=== PATIENT | female | born 1975 | race Caucasian/White ===

== ENCOUNTER 2023-01-23 09:00 | Outpatient (OUT) | payer BC, SELFPAY ==
[2023-01-23 09:47] LABS: Basophils Absolute Auto 0.1 10^3/uL (0.0-0.1); Basophils Percent Auto 0.6 % (0.2-2.0); Eosinophils Absolute Auto 0.1 10^3/uL (0.0-0.7); Eosinophils Percent Auto 1.2 % (0.9-7.0); Hematocrit 42.3 % (36.0-48.0); Hemoglobin 14.3 g/dL (12.0-16.0); Immature Granulocytes Abs Auto 0.05 10^3/uL (0.00-0.03); Immature Granulocytes Pct Auto 0.5 % (0.0-0.5); Lymphocytes Absolute Auto 2.3 10^3/uL (1.2-3.8); Lymphocytes Percent Auto 24.2 % (20.5-60.0); Mean Corpuscular HGB Conc 33.8 g/dL (29.9-35.2); Mean Corpuscular Hemoglobin 32.3 pg (26.7-34.0); Mean Corpuscular Volume 95.5 fL (81.0-99.0); Mean Platelet Volume 10.1 fL (9.5-13.5); Monocytes Absolute Auto 0.7 10^3/uL (0.3-0.8); Monocytes Percent Auto 6.9 % (1.7-12.0); Neutrophils Absolute Auto 6.4 10^3/uL (1.4-6.5); Neutrophils Percent Auto 66.6 % (43.0-75.0); Platelet Count 261 10^3/uL (150-450); Red Blood Count 4.43 10^6/uL (4.20-5.40); Red Cell Distribution Width 11.3 % (11.0-15.0); White Blood Count 9.7 10^3/uL (4.0-11.0)
[2023-01-23 12:05] LABS: Estimated Average Glucose 100 mg/dL; Glycohemoglobin A1C 5.1 % (4.5-6.2)
[2023-01-23 13:49] LABS: Alanine Aminotransferase 30 U/L (14-59); Albumin Globulin Ratio 1.2; Alkaline Phosphatase 46 U/L (46-116); Anion Gap 10.2; Aspartate Amino Transferase 15 U/L (15-37); BUN Creatinine Ratio 20.6; Bilirubin Total 0.4 mg/dL (0.2-1.0); Calcium 8.9 mg/dL (8.5-10.1); Chloride 104 mmol/L (98-107); Chol HDL Ratio 3.7; Cholesterol 231 mg/dL (<=200); Estimated GFR (African America >60 (>=60); Estimated GFR (Non-African Ame >60 (>=60); Free T3 2.86 pg/mL (2.18-3.98); Globulin 3.4 g/dL; Glucose 97 mg/dL (74-106); HDL Cholesterol 63 mg/dL (40-60); Potassium 4.2 mmol/L (3.5-5.1); Sodium 139 mmol/L (136-145); Thyroid Stimulating Hormone 2.563 uIU/mL (0.358-3.740); Total Protein 7.4 g/dL (6.4-8.2); Triglycerides 71 mg/dL (<=150); VLDL CHOLESTEROL 14.2 mg/dL
[2023-01-24 12:09] LABS: Insulin 5.4 uIU/mL (2.6-24.9)
[2023-01-24 17:11] LABS: Sex Horm Binding Glob, Serum 28.7 nmol/L (24.6-122.0)
[2023-01-25 04:07] LABS: Progesterone 0.1 ng/mL (.)
[2023-01-25 09:10] LABS: Estradiol 18.8 pg/mL (.)
[2023-01-25 18:11] LABS: Estrone, Serum 53 pg/mL (.)
[2023-01-27 00:07] LABS: DHEA, Serum 256 ng/dL (31-701)
[2023-02-02 09:11] LABS: Free Testosterone(Direct) 2.2 pg/mL (0.0-4.2); Testosterone 169 ng/dL (4-50)
[2023-02-02 10:12] LABS: Cortisol - AM 8.8 ug/dL (6.2-19.4)
== END 2023-01-23 09:01 | disposition home or self-care (01) ==
PROVIDERS: PCP Family Medicine; Visit Provider Family Medicine
DX: M72.2 Plantar fascial fibromatosis (principal); J01.90 Acute sinusitis, unspecified; E78.5 Hyperlipidemia, unspecified; R73.09 Other abnormal glucose; D64.9 Anemia, unspecified; E55.9 Vitamin D deficiency, unspecified
CPT/HCPCS: 36415; 80053; 80061; 82306; 82533; 82626; 82670; 82679; 83036; 83525; 83540; 84144; 84270; 84402; 84403; 84436; 84443; 84481; 85025

== ENCOUNTER 2023-01-30 11:11 | Outpatient (OUT) | payer BC, SELFPAY ==
--- NOTE | 2023-01-30 | XR_ITS ---
The [address] [address] Patient Name: ACOSTA RAMIREZ MRN: [id number] date: 1975 Sex: F Assigned Patient Location: [facility] Current Patient Location: [facility] Accession/Order Number: [id number] Exam Date: 01/30/2023 11:30 Report Date: 01/30/2023 22:54 At the request of: JOHNATHAN CHU Procedure: XR foot NIRANJAN min 3V EXAMINATION: XR foot NIRANJAN min 3V HISTORY: RIGHT FOOT PAIN COMPARISON: No relevant comparison available. FINDINGS: RIGHT FINDINGS: BONES: Mild bunion formation. Mild flattening of plantar arch. No fracture, dislocation, or bone lesion. SOFT TISSUES: No visible soft tissue swelling. OTHER: Negative. LEFT FINDINGS: BONES: Mild bunion formation. Mild flattening of plantar arch. No fracture, dislocation, or bone lesion. SOFT TISSUES: No visible soft tissue swelling. OTHER: Negative. XR/XR foot NIRANJAN min 3V IMPRESSION: RIGHT CONCLUSION: Mild bunion formation and mild pes planus. LEFT CONCLUSION: Mild bunion formation and mild pes planus. Electronically authenticated by: PARDEEP SHELTON Date: 01/30/2023 22:54
== END 2023-01-30 11:12 | disposition home or self-care (01) ==
LOC: RAD 11:12
PROVIDERS: PCP Family Medicine; Visit Provider Podiatrist Foot & Ankle Surgery
DX: M72.2 Plantar fascial fibromatosis (principal)
CPT/HCPCS: 73630

== ENCOUNTER 2023-03-01 09:14 | Outpatient (RCR) | payer BC, SELFPAY | END 2023-03-09 15:09 | disposition home or self-care (01) | LOC: PT 09:14 | PROVIDERS: PCP Family Medicine; Visit Provider Podiatrist Foot & Ankle Surgery | DX: M72.2 Plantar fascial fibromatosis (principal); M79.671 Pain in right foot; M79.672 Pain in left foot | CPT/HCPCS: 97035; 97110; 97140; 97161 ==

== ENCOUNTER 2023-03-01 15:18 | Outpatient (OUT) | payer BC, SELFPAY ==
[2023-03-03 04:07] LABS: Testosterone 16 ng/dL (4-50)
== END 2023-03-01 15:19 | disposition home or self-care (01) ==
LOC: LAB 15:20
PROVIDERS: PCP Family Medicine; Visit Provider Family Medicine
DX: R79.89 Other specified abnormal findings of blood chemistry (principal)
CPT/HCPCS: 36415; 84403

== ENCOUNTER 2023-11-26 13:15 | Emergency (ER) | payer BC, SELFPAY ==
[2023-11-26 13:22] VITALS: BP 144/94; PULSE 81; TEMP 36.5; O2SAT 97; BMI 32.0
--- OUTSIDE RECORDS SUMMARY | 2023-11-26 13:34 | XMS_ITS | CCD ---
Author Organization [facility] Care Team Providers Care Pharmaceutical Worker Name Role Phone SISI Price, DR CASTILLO Primary Care Unavailable JEFF, DR SUSANA Collins Attending Unavailable JEFF, DR SUSANA Collins Admitting Unavailable SISI ., DR CASTILLO Primary Care Unavailable MARIO, JOSE JUAN Admitting Unavailable MARIO, JOSE JUAN Attending Unavailable MARIO, JOSE JUAN Consulting Unavailable CHITOY ., DR CASTILLO Admitting Unavailable HOY ., DR CASTILLO Attending Unavailable HOHenry ., DR CASTILLO Consulting Unavailable SISI ., DR CASTILLO Primary Care Unavailable SISI ., DR CASTILLO Primary Care Unavailable JEFF, DR SUSANA Collins Admitting Unavailable JEFF, DR SUSANA Collins Attending Unavailable JEFF, DR SUSANA Collins Consulting Unavailable Allergies Allergy Classification Reported Allergen(s) Allergy Type Date of Onset Reaction(s) Facility (1 source) Cephalexin Drug Allergy 07-09-2014 [facility] (2 sources) Ciprofloxacin Drug Allergy 08-03-2014 [facility] (1 source) Penicillins Drug allergy (disorder) 07-09-2014 [facility] Results Test Name Value Interpretation Reference Range Facility CAROLA by IFAon 06-15-2022 Antinuclear Antibodies, IFA Negative Normal [facility] Comment on above: Result Comment: Nega tive <1:80 Borderline 1:80 Positive >1:80 ICAP nomenclature: AC-0 For more information about Hep-2 cell patterns use ANApatterns.org, the official website for the International Consensus on Antinuclear Antibody (CAROLA) Patterns (ICAP). Performed By: #### A NAIFA #### [facility] [address] [place] [address] Dr. Ryann Beasley INSULINon 06-12-2022 Insulin 8.8 uIU/mL Normal 2.6-24.9 [facility] Comment on above: Performed By: #### I NSULIN #### [facility] [address] [place] [address] Dr. Ryann Beasley ANTISTREPTOLYSIN O AB (ASO)o n 06-11-2022 Antistreptolysin O Ab 70.8 IU/mL Normal 0.0-200.0 [facility] Comment on above: Performed By: #### U SELMA, CRP, TSH, CMP, T7 #### [facility] [address] [place] [address] Dr. Ryann Beasley RHEUMATOID FACTORon 06-11-19 RA Latex Turbid. 11.2 IU/mL Normal <14.0 [facility] Comment on above: Performed By: #### U SELMA, CRP, TSH, CMP, T7 #### [facility] [address] [place] [address] Dr. Ryann Beasley CBC AUTO DIFFon 06-10-2022 BASO # 0.1 103/ul Normal 0.0-0.1 [facility] Comment on above: Performed By: #### U SELMA, CRP, TSH, CMP, T7 #### [facility] [address] [place] [address] Dr. Ryann Beasley Basophils/100 WBC (Bld) 0.7 % Normal 0.2-2.0 [facility] Comment on above: Performed By: #### U SELMA, CRP, TSH, CMP, T7 #### [facility] [address] [place] [address] Dr. Ryann Beasley EO # 0.1 103/ul Normal 0.0-0.7 [facility] Comment on above: Performed By: #### U SELMA, CRP, TSH, CMP, T7 #### [facility] [address] [place] [address] Dr. Ryann Beasley Eosinophils/100 WBC (Bld) 1.9 % Normal 0.9-7.0 [facility] Comment on above: Performed By: #### U SELMA, CRP, TSH, CMP, T7 #### [facility] [address] [place] [address] Dr. Ryann Beasley Erythrocyte distribution width (RBC) [Ratio] 11.4 % Normal 11.0-15.0 [facility] Comment on above: Performed By: #### U SELMA, CRP, TSH, CMP, T7 #### [facility] [address] [place] [address] Dr. Ryann Beasley Hematocrit (Bld) [Volume fraction] 41.1 % Normal 36.0-48.0 [facility] Comment on above: Performed By: #### U SELMA, CRP, TSH, CMP, T7 #### [facility] [address] [place] [address] Dr. Ryann Beasley Hemoglobin (Bld) [Mass/Vol] 13.8 g/dL Normal 12.0-16.0 [facility] Comment on above: Performed By: #### U SELMA, CRP, TSH, CMP, T7 #### [facility] [address] [place] [address] Dr. Ryann Beasley IG # 0.03 10e3/ul Normal 0.00-0.03 [facility] Comment on above: Performed By: #### U SELMA, CRP, TSH, CMP, T7 #### [facility] [address] [place] [address] Dr. Ryann Beasley IG % 0.4 % Normal 0.0-0.5 [facility] Comment on above: Performed By: #### U SELMA, CRP, TSH, CMP, T7 #### [facility] [address] [place] [address] Dr. Ryann Beasley LYMPH # 2.2 103/ul Normal 1.2-3.8 [facility] Comment on above: Performed By: #### U SELMA, CRP, TSH, CMP, T7 #### [facility] [address] [place] [address] Dr. Ryann Beasley Lymphocytes/100 WBC (Bld) 31.8 % Normal 20.5-60.0 [facility] Comment on above: Performed By: #### U SELMA, CRP, TSH, CMP, T7 #### [facility] [address] [place] [address] Dr. Ryann Beasley MANUAL DIFF REQ NO Normal [facility] Comment on above: Performed By: #### U SELMA, CRP, TSH, CMP, T7 #### [facility] [address] [place] [address] Dr. Ryann Beasley MCH (RBC) [Entitic mass] 31.1 pg Normal 26.7-34.0 [facility] Comment on above: Performed By: #### U SELMA, CRP, TSH, CMP, T7 #### [facility] [address] [place] [address] Dr. Ryann Beasley MCHC (RBC) [Mass/Vol] 33.6 g/dL Normal 29.9-35.2 [facility] Comment on above: Performed By: #### U SELMA, CRP, TSH, CMP, T7 #### [facility] [address] [place] [address] Dr. Ryann Beasley MCV (RBC) [Entitic vol] 92.6 fL Normal 81.0-99.0 [facility] Comment on above: Performed By: #### U SELMA, CRP, TSH, CMP, T7 #### [facility] [address] [place] [address] Dr. Ryann Beasley MONO # 0.5 103/ul Normal 0.3-0.8 [facility] Comment on above: Performed By: #### U SELMA, CRP, TSH, CMP, T7 #### [facility] [address] [place] [address] Dr. Ryann Beasley Monocytes/100 WBC (Bld) 7.1 % Normal 1.7-12.0 [facility] Comment on above: Performed By: #### U SELMA, CRP, TSH, CMP, T7 #### [facility] [address] [place] [address] Dr. Ryann Beasley NEUT # 4.0 103/ul Normal 1.4-6.5 [facility] Comment on above: Performed By: #### U SELMA, CRP, TSH, CMP, T7 #### [facility] [address] [place] [address] Dr. Ryann Beasley Neutrophils/100 WBC (Bld) 58.1 % Normal 43.0-75.0 [facility] Comment on above: Performed By: #### U SELMA, CRP, TSH, CMP, T7 #### [facility] [address] [place] [address] Dr. Ryann Beasley Platelet mean volume (Bld) [Entitic vol] 9.8 fL Normal 9.5-13.5 [facility] Comment on above: Performed By: #### U SELMA, CRP, TSH, CMP, T7 #### [facility] [address] [address] [address] Ryann Beasley PLT 273 103/ul Normal 150-450 [facility] Comment on above: Performed By: #### U SELMA, CRP, TSH, CMP, T7 #### [facility] [address] [address] [address] Ryann Beasley RBC 4.44 106/ul Normal 4.20-5.40 [facility] Comment on above: Performed By: #### U SELMA, CRP, TSH, CMP, T7 #### [facility] [address] [place] [address] Dr. Ryann Beasley WBC 7.0 103/ul Normal 4.0-11.0 [facility] Comment on above: Performed By: #### U SELMA, CRP, TSH, CMP, T7 #### [facility] [address] [address] [address] Ryann Beasley CRPon 06-10-2022 CRP [Mass/Vol] mg/L Normal <=1.0 [facility] Comment on above: Performed By: #### U SELMA, CRP, TSH, CMP, T7 #### [facility] [address] [place] [address] Dr. Ryann Beasley FREE THYROXINE INDEX T7on FTI 2.87 Normal 1.30-4.50 [facility] Comment on above: Performed By: #### U SELMA, CRP, TSH, CMP, T7 #### [facility] [address] [address] [address] Ryann Beasley T3U 35.0 % Normal 30.0-39.0 [facility] Comment on above: Performed By: #### U SELMA, CRP, TSH, CMP, T7 #### [facility] [address] [place] [address] Dr. Ryann Beasley T4 [Mass/Vol] 8.20 ug/dL Normal 4.80-13.90 [facility] Comment on above: Performed By: #### U SELMA, CRP, TSH, CMP, T7 #### [facility] [address] [address] [address] Ryann Beasley GLYCOHEMOGLOBIN A1Con 2022 ADA RECOMMENDATION SEE BELOW Normal [facility] Comment on above: Result Comment: ADA RECOMMENDED LIMIT 4.0 - 6.0 ADA THERAPEUTIC TARGET < 7.0 ACTION SUGGESTED > 7.0 Performed By: #### U SELMA, CRP, TSH, CMP, T7 #### [facility] [address] [address] [address] Ryann Beasley Glucose [Mass/Vol] 108 mg/dL Normal [facility] Comment on above: Performed By: #### U SELMA, CRP, TSH, CMP, T7 #### [facility] [address] [place] [address] Dr. Ryann Beasley HbA1c (Bld) [Mass fraction] 5.4 % Normal 4.5-6.2 [facility] Comment on above: Performed By: #### U SELMA, CRP, TSH, CMP, T7 #### [facility] [address] [address] [address] Ryann Beasley PROF 14(COMP METB)on 023 Albumin [Mass/Vol] 3.8 g/dL Normal 3.4-5.0 [facility] Comment on above: Performed By: #### U SELMA, CRP, TSH, CMP, T7 #### [facility] [address] [address] [address] Ryann Beasley Albumin/Globulin [Mass ratio] 1.2 {ratio} Normal [facility] Comment on above: Performed By: #### U SELMA, CRP, TSH, CMP, T7 #### [facility] [address] [place] [address] Dr. Ryann Beasley ALP [Catalytic activity/Vol] 49 U/L Normal 46-116 [facility] Comment on above: Performed By: #### U SELMA, CRP, TSH, CMP, T7 #### [facility] [address] [place] [address] Dr. Ryann Beasley ALT [Catalytic activity/Vol] 24 U/L Normal 14-59 [facility] Comment on above: Performed By: #### U SELMA, CRP, TSH, CMP, T7 #### [facility] [address] [address] [address] Ryann Beasley Anion gap [Moles/Vol] 14.3 mmol/L Normal [facility] Comment on above: Performed By: #### U SELMA, CRP, TSH, CMP, T7 #### [facility] [address] [address] [address] Ryann Beasley AST [Catalytic activity/Vol] 22 U/L Normal 15-37 [facility] Comment on above: Performed By: #### U SELMA, CRP, TSH, CMP, T7 #### [facility] [address] [place] [address] Dr. Ryann Beasley Bilirubin [Mass/Vol] 0.5 mg/dL Normal 0.2-1.0 [facility] Comment on above: Performed By: #### U SELMA, CRP, TSH, CMP, T7 #### [facility] [address] [address] [address] Ryann Beasley Calcium [Mass/Vol] 9.2 mg/dL Normal 8.5-10.1 [facility] Comment on above: Performed By: #### U SELMA, CRP, TSH, CMP, T7 #### [facility] [address] [place] [address] Dr. Ryann Beasley Chloride [Moles/Vol] 104 mmol/L Normal 98-107 [facility] Comment on above: Performed By: #### U SELMA, CRP, TSH, CMP, T7 #### [facility] [address] [address] [address] Ryann Beasley CO2 [Moles/Vol] 27.5 mmol/L Normal 21.0-32.0 [facility] Comment on above: Performed By: #### U SELMA, CRP, TSH, CMP, T7 #### [facility] [address] [place] [address] Dr. Ryann Beasley Creatinine [Mass/Vol] 0.63 mg/dL Normal 0.55-1.02 [facility] Comment on above: Performed By: #### U SELMA, CRP, TSH, CMP, T7 #### [facility] [address] [address] [address] Ryann Beasley EGFR-AF MAURITIAN >60 Normal >=60 [facility] Comment on above: Performed By: #### U SELMA, CRP, TSH, CMP, T7 #### [facility] [address] [address] [address] Ryann Beasley EGFR-NON AF MAURITIAN >60 Normal >=60 [facility] Comment on above: Performed By: #### U SELMA, CRP, TSH, CMP, T7 #### [facility] [address] [place] [address] Dr. Ryann Beasley Globulin (S) [Mass/Vol] 3.3 g/dL Normal [facility] Comment on above: Performed By: #### U SELMA, CRP, TSH, CMP, T7 #### [facility] [address] [address] [address] Ryann Beasley Glucose [Mass/Vol] 107 mg/dL Critically high 74-106 T [facility] Comment on above: Performed By: #### U SELMA, CRP, TSH, CMP, T7 #### [facility] [address] [address] [address] Ryann Beasley Potassium [Moles/Vol] 3.8 mmol/L Normal 3.5-5.1 [facility] Comment on above: Performed By: #### U SELMA, CRP, TSH, CMP, T7 #### [facility] [address] [place] [address] Dr. Ryann Beasley Protein [Mass/Vol] 7.1 g/dL Normal 6.4-8.2 [facility] Comment on above: Performed By: #### U SELMA, CRP, TSH, CMP, T7 #### [facility] [address] [place] [address] Dr. Ryann Beasley Sodium [Moles/Vol] 142 mmol/L Normal 136-145 [facility] Comment on above: Performed By: #### U SELMA, CRP, TSH, CMP, T7 #### [facility] [address] [address] [address] Ryann Beasley Urea nitrogen [Mass/Vol] 12.0 mg/dL Normal 7.0-18.0 [facility] Comment on above: Performed By: #### U SELMA, CRP, TSH, CMP, T7 #### [facility] [address] [address] [address] Ryann Beasley Urea nitrogen/Creatinine [Mass ratio] 19.0 mg/mg Normal [facility] Comment on above: Performed By: #### U SELMA, CRP, TSH, CMP, T7 #### [facility] [address] [address] [address] Ryann Beasley TSHon 06-10-2022 TSH 3.122 uIU/mL Normal 0.358-3.740 [facility] Comment on above: Performed By: #### U SELMA, CRP, TSH, CMP, T7 #### [facility] [address] [address] [address] Ryann Beasley URIC ACID SERUMon 06-10-2022 Urate [Mass/Vol] 4.3 mg/dL Normal 2.6-6.0 [facility] Comment on above: Performed By: #### U SELMA, CRP, TSH, CMP, T7 #### [facility] [address] [place] [address] Dr. Ryann Beasley INSULINon 01-26-2022 Insulin 9.7 uIU/mL Normal 2.6-24.9 [facility] Comment on above: Performed By: #### I NSULIN #### [facility] [address] [place] [address] Dr. Ryann Beasley T4, T3U, FTI LABCORPon 01-26 Free Thyroxine Index 4.6 Normal 1.2-4.9 [facility] Comment on above: Performed By: #### U SELMA, CRP, TSH, CMP, T7 #### [facility] [address] [place] [address] Dr. Ryann Beasley T3 Uptake 44 % Critically high 24-39 [facility] Comment on above: Performed By: #### U SELMA, CRP, TSH, CMP, T7 #### [facility] [address] [place] [address] Dr. Ryann Beasley T4 [Mass/Vol] 10.5 ug/dL Normal 4.5-12.0 [facility] Comment on above: Performed By: #### U SELMA, CRP, TSH, CMP, T7 #### [facility] [address] [place] [address] Dr. Ryann Beasley CBC AUTO DIFFon 01-25-2022 BASO # 0.1 103/ul Normal 0.0-0.1 [facility] Comment on above: Performed By: #### U SELMA, CRP, TSH, CMP, T7 #### [facility] [address] [place] [address] Dr. Ryann Beasley Basophils/100 WBC (Bld) 0.6 % Normal 0.2-2.0 [facility] Comment on above: Performed By: #### U SELMA, CRP, TSH, CMP, T7 #### [facility] [address] [place] [address] Dr. Ryann Beasley EO # 0.2 103/ul Normal 0.0-0.7 [facility] Comment on above: Performed By: #### U SELMA, CRP, TSH, CMP, T7 #### [facility] [address] [place] [address] Dr. Ryann Beasley Eosinophils/100 WBC (Bld) 1.8 % Normal 0.9-7.0 [facility] Comment on above: Performed By: #### U SELMA, CRP, TSH, CMP, T7 #### [facility] [address] [place] [address] Dr. Ryann Beasley Erythrocyte distribution width (RBC) [Ratio] 11.6 % Normal 11.0-15.0 [facility] Comment on above: Performed By: #### U SELMA, CRP, TSH, CMP, T7 #### [facility] [address] [place] [address] Dr. Ryann Beasley Hematocrit (Bld) [Volume fraction] 42.0 % Normal 36.0-48.0 [facility] Comment on above: Performed By: #### U SELMA, CRP, TSH, CMP, T7 #### [facility] [address] [place] [address] Dr. Ryann Beasley Hemoglobin (Bld) [Mass/Vol] 14.0 g/dL Normal 12.0-16.0 [facility] Comment on above: Performed By: #### U SELMA, CRP, TSH, CMP, T7 #### [facility] [address] [place] [address] Dr. Ryann Beasley IG # 0.04 10e3/ul Critically high 0.00-0.03 [facility] Comment on above: Performed By: #### U SELMA, CRP, TSH, CMP, T7 #### [facility] [address] [place] [address] Dr. Ryann Beasley IG % 0.5 % Normal 0.0-0.5 [facility] Comment on above: Performed By: #### U SELMA, CRP, TSH, CMP, T7 #### [facility] [address] [place] [address] Dr. Ryann Beasley LYMPH # 2.3 103/ul Normal 1.2-3.8 [facility] Comment on above: Performed By: #### U SELMA, CRP, TSH, CMP, T7 #### [facility] [address] [place] [address] Dr. Ryann Beasley Lymphocytes/100 WBC (Bld) 27.0 % Normal 20.5-60.0 [facility] Comment on above: Performed By: #### U SELMA, CRP, TSH, CMP, T7 #### [facility] [address] [place] [address] Dr. Ryann Beasley MANUAL DIFF REQ NO Normal [facility] Comment on above: Performed By: #### U SELMA, CRP, TSH, CMP, T7 #### [facility] [address] [place] [address] Dr. Ryann Beasley MCH (RBC) [Entitic mass] 32.0 pg Normal 26.7-34.0 [facility] Comment on above: Performed By: #### U SELMA, CRP, TSH, CMP, T7 #### [facility] [address] [place] [address] Dr. Ryann Beasley MCHC (RBC) [Mass/Vol] 33.3 g/dL Normal 29.9-35.2 [facility] Comment on above: Performed By: #### U SELMA, CRP, TSH, CMP, T7 #### [facility] [address] [place] [address] Dr. Ryann Beasley MCV (RBC) [Entitic vol] 95.9 fL Normal 81.0-99.0 [facility] Comment on above: Performed By: #### U SELMA, CRP, TSH, CMP, T7 #### [facility] [address] [place] [address] Dr. Ryann Beasley MONO # 0.7 103/ul Normal 0.3-0.8 [facility] Comment on above: Performed By: #### U SELMA, CRP, TSH, CMP, T7 #### [facility] [address] [place] [address] Dr. Ryann Beasley Monocytes/100 WBC (Bld) 7.8 % Normal 1.7-12.0 [facility] Comment on above: Performed By: #### U SELMA, CRP, TSH, CMP, T7 #### [facility] [address] [place] [address] Dr. Ryann Beasley NEUT # 5.2 103/ul Normal 1.4-6.5 [facility] Comment on above: Performed By: #### U SELMA, CRP, TSH, CMP, T7 #### [facility] [address] [place] [address] Dr. Ryann Beasley Neutrophils/100 WBC (Bld) 62.3 % Normal 43.0-75.0 [facility] Comment on above: Performed By: #### U SELMA, CRP, TSH, CMP, T7 #### [facility] [address] [place] [address] Dr. Ryann Beasley Platelet mean volume (Bld) [Entitic vol] 10.0 fL Normal 9.5-13.5 [facility] Comment on above: Performed By: #### U SELMA, CRP, TSH, CMP, T7 #### [facility] [address] [place] [address] Dr. Ryann Beasley PLT 231 103/ul Normal 150-450 [facility] Comment on above: Performed By: #### U SELMA, CRP, TSH, CMP, T7 #### [facility] [address] [address] [address] Ryann Beasley RBC 4.38 106/ul Normal 4.20-5.40 [facility] Comment on above: Performed By: #### U SELMA, CRP, TSH, CMP, T7 #### [facility] [address] [address] [address] Ryann Beasley WBC 8.3 103/ul Normal 4.0-11.0 [facility] Comment on above: Performed By: #### U SELMA, CRP, TSH, CMP, T7 #### [facility] [address] [address] [address] Ryann Beasley GLYCOHEMOGLOBIN A1Con 2021 ADA RECOMMENDATION SEE BELOW Normal [facility] Comment on above: Result Comment: ADA RECOMMENDED LIMIT 4.0 - 6.0 ADA THERAPEUTIC TARGET < 7.0 ACTION SUGGESTED > 7.0 Performed By: #### A 1C #### [facility] [address] [address] [address] Ryann Beasley Glucose [Mass/Vol] 100 mg/dL Normal [facility] Comment on above: Performed By: #### A 1C #### [facility] [address] [address] [address] Ryann Besaley HbA1c (Bld) [Mass fraction] 5.1 % Normal 4.5-6.2 [facility] Comment on above: Performed By: #### A 1C #### [facility] [address] [address] [address] Ryann Beasley IRONon 01-25-2022 Iron [Mass/Vol] 64.0 ug/dL Normal 50.0-170.0 [facility] Comment on above: Performed By: #### U SELMA, CRP, TSH, CMP, T7 #### [facility] [address] [address] [address] Ryann Beasley LIPID PROFILEon 09-28-2022 CHOL-HDL RATIO NORM SEE BELOW Normal [facility] Comment on above: Result Comment: 3.3 - 4.4 LOW RISK 4.4 - 7.1 AVERAGE RISK 7.1 - 11.0 MODERATE RISK >11.0 HIGH RISK Performed By: #### U SELMA, CRP, TSH, CMP, T7 #### [facility] [address] [address] [address] Ryann Beasley Cholesterol [Mass/Vol] 201 mg/dL Critically high <=200 [facility] Comment on above: Performed By: #### U SELMA, CRP, TSH, CMP, T7 #### [facility] [address] [address] [address] Ryann Beasley Cholesterol in HDL [Mass/Vol] 54 mg/dL Normal 40-60 [facility] Comment on above: Performed By: #### U SELMA, CRP, TSH, CMP, T7 #### [facility] [address] [address] [address] Ryann Beasley Cholesterol in LDL [Mass/Vol] 129.4 mg/dL Normal [facility] Comment on above: Performed By: #### U SELMA, CRP, TSH, CMP, T7 #### [facility] [address] [address] [address] Ryann Beasley Cholesterol.total/Chol esterol in HDL [Mass ratio] 3.7 {ratio} Normal [facility] Comment on above: Performed By: #### U SELMA, CRP, TSH, CMP, T7 #### [facility] [address] [address] [address] Ryann Beasley HDL NORMAL > or = 60 mg/dl - LOW CARDIOVASCULAR RISK <40 mg/dl - HIGH CARDIOVASCULAR RISK Normal [facility] Comment on above: Performed By: #### U SELMA, CRP, TSH, CMP, T7 #### [facility] [address] [address] [address] Ryann Beasley LDL CALC NORMAL SEE BELOW Normal [facility] Comment on above: Result Comment: <100 mg/dl OPTIMAL 100 - 129 mg/dl NEAR OR ABOVE OPTIMAL 130 - 159 mg/dl BORDERLINE HIGH 160 - 189 mg/dl HIGH >190 mg/dl VERY HIGH Performed By: #### U SELMA, CRP, TSH, CMP, T7 #### [facility] [address] [address] [address] Ryann Beasley Triglyceride [Mass/Vol] 88 mg/dL Normal <=150 [facility] Comment on above: Performed By: #### U SELMA, CRP, TSH, CMP, T7 #### [facility] [address] [address] [address] Ryann Beasley VLDL CALC 17.6 mg/dL Normal [facility] Comment on above: Performed By: #### U SELMA, CRP, TSH, CMP, T7 #### [facility] [address] [address] [address] Ryann Beasley PROF 14(COMP METB)on 022 Albumin [Mass/Vol] 4.1 g/dL Normal 3.4-5.0 [facility] Comment on above: Performed By: #### U SELMA, CRP, TSH, CMP, T7 #### [facility] [address] [address] [address] Ryann Beasley Albumin/Globulin [Mass ratio] 1.3 {ratio} Normal [facility] Comment on above: Performed By: #### U SELMA, CRP, TSH, CMP, T7 #### [facility] [address] [address] [address] Ryann Beasley ALP [Catalytic activity/Vol] 46 U/L Normal 46-116 [facility] Comment on above: Performed By: #### U SELMA, CRP, TSH, CMP, T7 #### [facility] [address] [address] [address] Ryann Beasley ALT [Catalytic activity/Vol] 21 U/L Normal 14-59 [facility] Comment on above: Performed By: #### U SELMA, CRP, TSH, CMP, T7 #### [facility] [address] [address] [address] Ryann Beasley Anion gap [Moles/Vol] 13.2 mmol/L Normal [facility] Comment on above: Performed By: #### U SELMA, CRP, TSH, CMP, T7 #### [facility] [address] [address] [address] Ryann Beasley AST [Catalytic activity/Vol] 8 U/L Critically low 15-37 [facility] Comment on above: Performed By: #### U SELMA, CRP, TSH, CMP, T7 #### [facility] [address] [address] [address] Ryann Beasley Bilirubin [Mass/Vol] 0.3 mg/dL Normal 0.2-1.0 [facility] Comment on above: Performed By: #### U SELMA, CRP, TSH, CMP, T7 #### [facility] [address] [address] [address] Ryann Beasley Calcium [Mass/Vol] 9.3 mg/dL Normal 8.5-10.1 [facility] Comment on above: Performed By: #### U SELMA, CRP, TSH, CMP, T7 #### [facility] [address] [address] [address] Ryann Beasley Chloride [Moles/Vol] 104 mmol/L Normal 98-107 [facility] Comment on above: Performed By: #### U SELMA, CRP, TSH, CMP, T7 #### [facility] [address] [address] [address] Ryann Beasley CO2 [Moles/Vol] 26.8 mmol/L Normal 21.0-32.0 [facility] Comment on above: Performed By: #### U SELMA, CRP, TSH, CMP, T7 #### [facility] [address] [address] [address] Ryann Beasley Creatinine [Mass/Vol] 0.64 mg/dL Normal 0.55-1.02 [facility] Comment on above: Performed By: #### U SELMA, CRP, TSH, CMP, T7 #### [facility] [address] [address] [address] Ryann Beasley EGFR-AF MAURITIAN >60 Normal >=60 [facility] Comment on above: Performed By: #### U SELMA, CRP, TSH, CMP, T7 #### [facility] [address] [address] [address] Ryann Beasley EGFR-NON AF MAURITIAN >60 Normal >=60 [facility] Comment on above: Performed By: #### U SELMA, CRP, TSH, CMP, T7 #### [facility] [address] [address] [address] Ryann Beasley Globulin (S) [Mass/Vol] 3.1 g/dL Normal [facility] Comment on above: Performed By: #### U SELMA, CRP, TSH, CMP, T7 #### [facility] [address] [address] [address] Ryann Beasley Glucose [Mass/Vol] 103 mg/dL Normal 74-106 [facility] Comment on above: Performed By: #### U SELMA, CRP, TSH, CMP, T7 #### [facility] [address] [place] [address] Dr. Ryann Beasley Potassium [Moles/Vol] 4.0 mmol/L Normal 3.5-5.1 [facility] Comment on above: Performed By: #### U SELMA, CRP, TSH, CMP, T7 #### [facility] [address] [place] [address] Dr. Ryann Beasley Protein [Mass/Vol] 7.2 g/dL Normal 6.4-8.2 [facility] Comment on above: Performed By: #### U SELMA, CRP, TSH, CMP, T7 #### [facility] [address] [place] [address] Dr. Ryann Beasley Sodium [Moles/Vol] 140 mmol/L Normal 136-145 [facility] Comment on above: Performed By: #### U SELMA, CRP, TSH, CMP, T7 #### [facility] [address] [place] [address] Dr. Ryann Beasley Urea nitrogen [Mass/Vol] 16.0 mg/dL Normal 7.0-18.0 [facility] Comment on above: Performed By: #### U SELMA, CRP, TSH, CMP, T7 #### [facility] [address] [place] [address] Dr. Ryann Beasley Urea nitrogen/Creatinine [Mass ratio] 25.0 mg/mg Normal [facility] Comment on above: Performed By: #### U SELMA, CRP, TSH, CMP, T7 #### [facility] [address] [place], [place] [address] Dr. Ryann Beasley TSHon 01-25-2022 TSH 2.706 uIU/mL Normal 0.358-3.740 [facility] Comment on above: Performed By: #### L IPID, CMP, TSH #### [facility] [address] [place], [place] [address] Dr. Ryann Beasley Encounters Encounter Date Encounter Type Care Provider Facility Start: 07-20-[address] ANNA LAIRD . Facili ty[facility] Start: 06-16-[address] ANNA LAIRD . Facili ty:[facility] Start: 06-16-2022 Encounter for genera l adult medical examination without abnormal findings DR ANNA LAIRD . [facility] Start: 06-10-2022 End: 06-11-[address] ANNA LAIRD . Facility:[facility] Start: 06-10-2022 End: 06-11-2022 Encounter for general adult medical examination without abnormal findings DR ANNA LAIRD . Facility:[facility] Start: 01-25-2022 End: 01-26-[address] ANNA LAIRD . Facility:[facility] Payers Date Payer Category Payer Unknown [id number] 2.16.84 [id number] 1975 Unknown [id number] 2.16.84 [id number] 1975 Unknown [id number] 2.16.84 [id number] 1975 Unknown [id number] 2.16.84 [id number] 1959 Self-pay [id number] 1959 Unknown [id number] Summary Purpose Family History No Family History Records Found Advance Directives No Advanced Directives Records Found Additional Source Comments INFORMATION SOURCE (unrecogn ized section and content) DATE CREATED AUTHOR 07/21/2022 The [facility] FOR RECORDS PERTAINING TO PATIENTS WHO ARE OR HAVE BEEN ENROLLED IN A CHEMICAL DEPENDENCY/SUBSTANCEABUSE PROGRAM, SOME INFORMATION MAY BE OMITTED. This clinical summary was aggregated from multiple sources. Caution should be exercised in using it in the provision of clinical care. This summary normalizes information from multiple sources, and as a consequence, information in this document may materially change the coding, format and clinical context of patient data. In addition, data may be omitted in some cases. CLINICAL DECISIONS SHOULD BE BASED ON THE PRIMARY CLINICAL RECORDS. [facility] [employer] [facility] provides no warranty or guarantee of the accuracy or completeness of information in this document.
--- NOTE | 2023-11-26 13:41 | ED_ITS ---
HPI - Abdominal Pain General Chief Complaint: Abdominal Pain Stated Complaint: LOWER ABDOMINAL PAIN Time Seen by Provider: 11/26/23 13:28 Source: patient Mode of arrival: walk-in Limitations: no limitations History of Present Illness HPI narrative: Patient is a 48-year-old female who presents to the emergency department for a 2-day history of pain in the left lower quadrant. She describes the pain as coming in waves. She has had similar episodes in the past. She has had a previous colonoscopy as well as previous ultrasounds, CT scans and an ex lap to rule out endometriosis that was done by her caseworker intake. She states she believes she is having a flare of something although she has never received a formal diagnosis for her pain. She denies fevers, vomiting, urinary symptoms, flank or back pain. She used Tylenol and Motrin last night to go to work and states that she had improvement with these medications but when they wear off the pain returns. She has had a previous tubal ligation, ablation. She states she passed a small amount of dark brown blood several days ago before the pain started. Related Data Home Medications ?Medication ?Instructions ?Recorded ?Confirmed dextroamphetamine-amphetamine 20 20 mg PO DAILY 11/26/23 11/26/23 mg tablet ibuprofen 800 mg tablet 800 mg PO Q6H 11/26/23 11/26/23 Previous Rx's ?Medication ?Instructions ?Recorded ketorolac 10 mg tablet 10 mg PO TID PRN pain #10 tabs 11/26/23 tramadol 50 mg tablet 50 mg PO Q6H PRN pain 3 days #12 11/26/23 tabs Allergies Allergy/AdvReac Type Severity Reaction Status Date / Time ciprofloxacin [From Cipro] Allergy Severe Swelling Verified 11/26/23 13:22 of Lip/Tongue/Throat Penicillins Allergy Severe Anaphylaxis Verified 11/26/23 13:22 Review of Systems ROS Constitutional Denies: fever or chills Ears, nose, mouth, and throat Denies: throat pain or nasal congestion Respiratory Denies: shortness of breath Gastrointestinal Reports: abdominal pain; Denies: nausea or vomiting Musculoskeletal Denies: back pain Integumentary/Breast Denies: rash Hematologic/Lymphatic Denies: easy bruising or easy bleeding Exam Narrative Exam Narrative: Gen.: Awake, alert, in no distress Head: Normocephalic, atraumatic ENT: Moist mucous membranes Respiratory: No respiratory distress Gastrointestinal: Abdomen is soft, nondistended and mildly tender to palpation in the left lower quadrant, tenderness is localized to the left lower quadrant with no CVA tenderness. No guarding or rebound Extremities: Moves extremities equally Psych: Normal mood and affect Neuro: No focal neuro deficit Skin: Warm, dry, intact Constitutional Vital Signs, click to edit/add: Last Vital Signs Temp 97.7 F 11/26/23 13:22 Pulse 81 11/26/23 13:22 Resp 16 11/26/23 13:22 BP 144/94 H 11/26/23 13:22 Pulse Ox 97 11/26/23 13:22 O2 Del Method Nasal Cannula 11/26/23 13:22 Course Vital Signs Vital signs: Vital Signs Temperature 97.7 F 11/26/23 13:22 Pulse Rate 81 11/26/23 13:22 Respiratory Rate 16 11/26/23 13:22 Blood Pressure 144/94 H 11/26/23 13:22 Pulse Oximetry 97 11/26/23 13:22 Oxygen Delivery Method Nasal Cannula 11/26/23 13:22 Temperature 97.7 F 11/26/23 13:22 Pulse Rate 81 11/26/23 13:22 Respiratory Rate 16 11/26/23 13:22 Blood Pressure 144/94 H 11/26/23 13:22 Pulse Oximetry 97 11/26/23 13:22 Oxygen Delivery Method Nasal Cannula 11/26/23 13:22 MDM - Abdominal Pain MDM Narrative Medical decision making narrative: Ultrasound shows a 2 cm mass in the left uterine wall consistent with a leiomyoma. Patient placed on pain medication for home, referred to gynecology. Return to the ER if symptoms change or worsen. SUPERVISED APC VISIT, PHYSICIAN ATTESTATION: Based on the medical record the care appears appropriate. ? Medical Records Attestation: I reviewed the patient's medical records. Lab Data Attestation: I reviewed the patient's lab results. Labs: Lab Results 11/26/23 11/26/23 Range/Units 13:40 13:45 WBC 7.6 (4.0-11.0) 10^3/uL RBC 4.36 (4.20-5.40) 10^6/uL Hgb 13.9 (12.0-16.0) g/dL Hct 40.1 (36.0-48.0) % MCV 92.0 (81.0-99.0) fL MCH 31.9 (26.7-34.0) pg MCHC 34.7 (29.9-35.2) g/dL RDW 11.3 (11.0-15.0) % Plt Count 223 (150-450) 10^3/uL MPV 10.4 (9.5-13.5) fL Neut % (Auto) 57.9 (43.0-75.0) % Lymph % (Auto) 31.5 (20.5-60.0) % [place] % (Auto) 7.6 (1.7-12.0) % Eos % (Auto) 2.0 (0.9-7.0) % Baso % (Auto) 0.7 (0.2-2.0) % Neut # (Auto) 4.4 (1.4-6.5) 10^3/uL Lymph # (Auto) 2.4 (1.2-3.8) 10^3/uL [place] # (Auto) 0.6 (0.3-0.8) 10^3/uL Eos # (Auto) 0.2 (0.0-0.7) 10^3/uL Baso # (Auto) 0.1 (0.0-0.1) 10^3/uL Abs Immat Gran (auto) 0.02 (0.00-0.03) 10^3/uL Imm/Tot Granulo (auto) 0.3 (0.0-0.5) % Sodium 138 (136-145) mmol/L Potassium 3.7 (3.5-5.1) mmol/L Chloride 105 (98-107) mmol/L Carbon Dioxide 23.9 (21.0-32.0) mmol/L Anion Gap 12.8 BUN 12.0 (7.0-18.0) mg/dL Creatinine 0.72 (0.55-1.02) mg/dL Est GFR ( Amer) >60 (>=60) Est GFR (Non-Af Amer) >60 (>=60) BUN/Creatinine Ratio 16.7 Glucose 102 (74-106) mg/dL Calcium 8.6 (8.5-10.1) mg/dL Total Bilirubin 0.4 (0.2-1.0) mg/dL AST 13 L (15-37) U/L ALT 26 (14-59) U/L Alkaline Phosphatase 46 (46-116) U/L Total Protein 6.5 (6.4-8.2) g/dL Albumin 3.6 (3.4-5.0) g/dL Globulin 2.9 g/dL Albumin/Globulin Ratio 1.2 Serum HCG, Qual Negative (NEGATIVE) Urine Color Yellow (YELLOW) Urine Clarity Clear (CLEAR) Urine pH 6.0 (5.0-9.0) Ur Specific [place] >=1.030 A (1.005-1.025) Urine Protein Negative (NEG/TRACE) mg/dL Urine Glucose (UA) Negative (NEGATIVE) mg/dL Urine Ketones Negative (NEGATIVE) mg/dL Urine Occult Blood Trace-i (NEGATIVE) Urine Nitrite Negative (NEGATIVE) Urine Bilirubin Negative (NEGATIVE) Urine Urobilinogen 0.2 (0.2-1.0) EU/dL Ur Leukocyte Esterase Negative (NEGATIVE) Urine RBC 2-5 A (0-2) #/HPF Urine WBC 0-2 A (NONE SEEN) #/HPF Ur Squamous Epith Cells Moderate A (NONE/RARE) #/LPF Urine Crystals None seen (None Seen) #/HPF Urine Bacteria Small A (NONE SEEN) #/HPF Urine Casts None seen (NONE SEEN) #/LPF Urine Mucus None seen (NONE SEEN) Ur Culture Indicated? Yes Imaging Data US - abdomen: Attestation: I have reviewed the pertinent imaging results. Radiologist's impression: ITS Impressions Transvaginal US 11/26/23 14:24 IMPRESSION: 1. Heterogeneous 2.1 cm mass within left uterine wall suspected to represent a leiomyoma. 2. No appreciable acute findings to account for patient's symptoms. Electronically authenticated by: PARDEEP SHELTON Date: 11/26/2023 15:17 Discharge Plan Discharge Stand Alone Forms: Portal Instructions Chief Complaint: Abdominal Pain Clinical Impression: Pelvic pain, Leiomyoma Patient Disposition: Home, Self-Care Time of Disposition Decision: 15:33 Condition: Good Prescriptions / Home Meds: New tramadol 50 mg tablet 50 mg PO Q6H PRN (Reason: pain) 3 Days Qty: 12 0RF Rx Instructions: DX R10.9 ketorolac 10 mg tablet 10 mg PO TID PRN (Reason: pain) Qty: 10 0RF No Action ibuprofen 800 mg tablet 800 mg PO Q6H dextroamphetamine-amphetamine 20 mg tablet 20 mg PO DAILY Print Language: Icelandic Instructions: Uterine Fibroids (ED) Referrals: Bernardo Kwong DO [Physician] - 1 week Gatito Hill MD [Primary Care Provider] - 1 week
[2023-11-26] MEDS: KETOROLAC TROMETHAMINE 30 MG/ML VIAL IVP (13:53)
[2023-11-26 13:56] LABS: Basophils Absolute Auto 0.1 10^3/uL (0.0-0.1); Basophils Percent Auto 0.7 % (0.2-2.0); Eosinophils Absolute Auto 0.2 10^3/uL (0.0-0.7); Hematocrit 40.1 % (36.0-48.0); Hemoglobin 13.9 g/dL (12.0-16.0); Immature Granulocytes Abs Auto 0.02 10^3/uL (0.00-0.03); Immature Granulocytes Pct Auto 0.3 % (0.0-0.5); Lymphocytes Absolute Auto 2.4 10^3/uL (1.2-3.8); Lymphocytes Percent Auto 31.5 % (20.5-60.0); Mean Corpuscular HGB Conc 34.7 g/dL (29.9-35.2); Mean Corpuscular Hemoglobin 31.9 pg (26.7-34.0); Mean Platelet Volume 10.4 fL (9.5-13.5); Monocytes Absolute Auto 0.6 10^3/uL (0.3-0.8); Monocytes Percent Auto 7.6 % (1.7-12.0); Neutrophils Absolute Auto 4.4 10^3/uL (1.4-6.5); Neutrophils Percent Auto 57.9 % (43.0-75.0); Platelet Count 223 10^3/uL (150-450); Red Blood Count 4.36 10^6/uL (4.20-5.40); Red Cell Distribution Width 11.3 % (11.0-15.0); White Blood Count 7.6 10^3/uL (4.0-11.0)
[2023-11-26 14:04] LABS: Bilirubin Urine NEGATIVE (NEGATIVE); Blood Urine TRACE-I (NEGATIVE); Clarity Urine CLEAR (CLEAR); Color Urine YELLOW (YELLOW); Glucose Urine UA NEGATIVE (NEGATIVE); Ketones Urine NEGATIVE (NEGATIVE); Leukocyte Esterase Urine NEGATIVE (NEGATIVE); Nitrite Urine NEGATIVE (NEGATIVE); Protein Urine NEGATIVE (NEG/TRACE); Specific Gravity Urine >=1.030 (1.005-1.025); Urine Microscopic Indicated YES; Urobilinogen Urine 0.2 EU/dL (0.2-1.0)
[2023-11-26 14:13] LABS: Bacteria Urine SMALL #/HPF (NONE SEEN); Cast Seen? NONE SEEN #/LPF (NONE SEEN); Crystals Seen? None Seen #/HPF (None Seen); Mucus Urine NONE SEEN (NONE SEEN); Squamous Epithelial Cell Urine MODERATE #/LPF (NONE/RARE); Urine Culture Indicated YES; WBC Urine 0-2 #/HPF (NONE SEEN)
[2023-11-26 14:22] LABS: Alanine Aminotransferase 26 U/L (14-59); Albumin Globulin Ratio 1.2; Albumin Level 3.6 g/dL (3.4-5.0); Alkaline Phosphatase 46 U/L (46-116); Anion Gap 12.8; Aspartate Amino Transferase 13 U/L (15-37); BUN Creatinine Ratio 16.7; Bilirubin Total 0.4 mg/dL (0.2-1.0); Calcium 8.6 mg/dL (8.5-10.1); Carbon Dioxide 23.9 mmol/L (21.0-32.0); Chloride 105 mmol/L (98-107); Estimated GFR (African America >60 (>=60); Estimated GFR (Non-African Ame >60 (>=60); Globulin 2.9 g/dL; Glucose 102 mg/dL (74-106); Potassium 3.7 mmol/L (3.5-5.1); Sodium 138 mmol/L (136-145); Total Protein 6.5 g/dL (6.4-8.2)
[2023-11-26 14:23] LABS: HCG Qualitative NEGATIVE (NEGATIVE); Internal Control Within Normal Limits
--- NOTE | 2023-11-26 14:24 | US_ITS ---
The [address] [address] Patient Name: ACOSTA RAMIREZ MRN: [id number] date: 1975 Sex: F Assigned Patient Location: ER Current Patient Location: ER Accession/Order Number: [id number] Exam Date: 11/26/2023 14:25 Report Date: 11/26/2023 15:17 At the request of: FRANK VANESSA Procedure: US pelvis transvaginal EXAMINATION: US pelvis transvaginal HISTORY: left pelvic pain COMPARISON: No relevant comparison available. TECHNIQUE: Transabdominal and/or transvaginal sonographic examination was performed as indicated by examination type. FINDINGS: UTERUS: Heterogeneous 2.1 cm area within left uterine wall suspected to represent a leiomyoma. Several small nabothian cysts within cervix Uterus size: 8.6 x 3.3 x 5.7 cm ENDOMETRIUM: Normal homogeneous appearance. Endometrial thickness: 4 mm RIGHT OVARY: Contains multiple small hyperechoic foci/calcifications. Duplex Doppler demonstrates normal waveform and flow; resistive index 0.5. Ovary size: 2.1 x 2.3 x 1.5 cm LEFT OVARY: Normal size and appearance. Duplex Doppler demonstrates normal waveform and flow; resistive index 0.5. Ovary size: 1.9 x 1.5 x 1.9 cm CUL-DE-SAC: Unremarkable. No significant free fluid. BLADDER: Unremarkable. OTHER: None. US/US pelvis transvaginal IMPRESSION: 1. Heterogeneous 2.1 cm mass within left uterine wall suspected to represent a leiomyoma. 2. No appreciable acute findings to account for patient's symptoms. Electronically authenticated by: PARDEEP SHELTON Date: 11/26/2023 15:17
== END 2023-11-26 15:44 | disposition home or self-care (01) ==
PROVIDERS: Physician Assistant; Emergency Provider Emergency Medicine Emergency Medical Services; PCP Family Medicine
DX: D25.9 Leiomyoma of uterus, unspecified (principal); R10.2 Pelvic and perineal pain
CPT/HCPCS: 36415; 76830; 80053; 81001; 84703; 85025; 87086; 96374; 99285; J1885

== ENCOUNTER 2024-06-18 13:57 | Outpatient (RCR) | payer BC, SELFPAY | END 2024-07-08 11:16 | disposition home or self-care (01) | LOC: PT 13:57 | PROVIDERS: PCP Family Medicine; Visit Provider Family Medicine | DX: M62.838 Other muscle spasm (principal) | CPT/HCPCS: 97010; 97014; 97110; 97140; 97162; 97530 ==

== ENCOUNTER 2024-08-06 09:15 | Outpatient (OUT) | payer BC, SELFPAY ==
[2024-08-06 09:34] LABS: Basophils Percent Auto 0.6 % (0.2-2.0); Eosinophils Percent Auto 0.6 % (0.9-7.0); Hematocrit 45.3 % (36.0-48.0); Hemoglobin 15.3 g/dL (12.0-16.0); Immature Granulocytes Abs Auto 0.02 10^3/uL (0.00-0.03); Immature Granulocytes Pct Auto 0.3 % (0.0-0.5); Lymphocytes Absolute Auto 2.4 10^3/uL (1.2-3.8); Lymphocytes Percent Auto 36.3 % (20.5-60.0); Mean Corpuscular HGB Conc 33.8 g/dL (29.9-35.2); Mean Corpuscular Hemoglobin 31.9 pg (26.7-34.0); Mean Corpuscular Volume 94.4 fL (81.0-99.0); Mean Platelet Volume 10.3 fL (9.5-13.5); Monocytes Absolute Auto 0.5 10^3/uL (0.3-0.8); Monocytes Percent Auto 6.7 % (1.7-12.0); Neutrophils Absolute Auto 3.7 10^3/uL (1.4-6.5); Neutrophils Percent Auto 55.5 % (43.0-75.0); Platelet Count 235 10^3/uL (150-450); Red Cell Distribution Width 11.7 % (11.0-15.0); White Blood Count 6.7 10^3/uL (4.0-11.0)
--- OUTSIDE RECORDS SUMMARY | 2024-08-06 09:36 | XMS_ITS | CCD ---
Author Organization [facility] Care Team Providers Care Supervisor Sign Shop Name Role Phone SISI ., DR CASTILLO Primary Care Unavailable WEST, DR SUSANA Collins Attending Unavailable WEST, DR SUSANA Collins Admitting Unavailable HOY ., DR CASTILLO Primary Care Unavailable JOSE JUAN MARTIN Admitting Unavailable JOSE JUAN MARTIN Attending Unavailable JOSE JUAN MARTIN Consulting Unavailable HOY ., DR CASTILLO Admitting Unavailable HOY ., DR CASTILLO Attending Unavailable HOY ., DR CASTILLO Consulting Unavailable CHITOY ., DR CASTILLO Primary Care Unavailable HOY ., DR CASTILLO Primary Care Unavailable WEST, DR SUSANA Collins Admitting Unavailable WEST, DR SUSANA Collins Attending Unavailable WEST, DR SUSANA Collins Consulting Unavailable HEIDE MICHAEL Attending Unavailable Unavailable Primary Care Provider UnavailAnna Padilla MD Primary Care Provider [phone] Jason May MD Emergency Provider Cruz Painting APRN Emergency Provider Jason May Admitting Unavailable [facility] Unavailable Jason May Attending Unavailable Cruz Painting Attending Unavailable Cruz Painting Admitting Unavailable [facility] Unavailable Allergies Allergy Classification Reported Allergen(s) Allergy Type Date of Onset Reaction(s) Facility (1 source) Cephalexin Drug Allergy 5 [facility] Repository (2 sources) Ciprofloxacin Drug Allergy 5 [facility] Repository (4 sources) Penicillins Drug allergy (disorder) 5 Anaphylaxis [facility] Repository (5 sources) Ciprofloxacin Drug Allergy 4 Anaphylaxis [facility] (2 sources) Penicillins Drug Intolerance 4 Unknown [facility] (1 source) Ciprofloxacin Drug Allergy 5 [facility] Repository (1 source) Penicillins Drug allergy (disorder) 5 [facility] Repository Medications Current Medications Medication Drug Class(es) Dates Sig (Normalized) Sig (Original) acetaminophen 325 mg / HYDROcodone bitartrate 5 mg oral tablet (2 sources) Opioid Agonist Start: 06-08-2024 take 1 tablet by mouth every four to six hours as needed for pain Hydrocodone-Acet aminophen 5-325 mg tablet Active 1 - 2 TAB PO EVERY 4-6 HOURS as needed for pain 15 3 June 08, 2024 ibuprofen 800 mg oral tablet (5 sources) Nonsteroidal Anti-inflammatory Drug Start: 06-08-2024 take 1 tablet by mouth every six hours as needed for pain Ibuprofen 800 mg tablet Active 800 MG PO Every 6 hours as needed for fever or pain June 08, 2024 12:00am Start: 07-30-2023 ibuprofen 800 MG tablet 07/30/2023 Active Completed/Discontinued Medications Medication Drug Class(es) Dates Sig (Normalized) Sig (Original) amphetamine aspartate 5 mg / amphetamine sulfate 5 mg / dextroamphetamine saccharate 5 mg / dextroamphetamine sulfate 5 mg oral tablet (5 sources) Central Nervous System Stimulant Start: 06-08-2024 End: 06-08-2024 take 1 tablet by mouth once daily Dextroamphetamine- Amphetamine 20 mg tablet Discontinued 20 MG PO Daily June 08, 2024 12:00am June 08, 2024 12:01pm Start: 01-15-2024 take 1 tablet by linda th once daily amphetamine-dextroamphetamine (Adderall) 20 MG tablet take 1 tablet by mouth once daily for 30 01/15/2024 Active Ketoconazole 2 % shampoo (3 sources) Start: 06-08-2024 End: 06-08-2024 Ketoconazole 2 % shampoo Dis continued TOPICAL June 08, 2024 12:00am June 08, 2024 12:01pm Start: 06-08-2024 Ketoconazole 2 % shampoo Active TOPICAL June 08, 2024 12:00am Problems Problem Classification Problem Date Documented Date Episodic/Chronic Administrative/social admission (2 sources) Patient encounter status; Translations: [Encounter for other administrative examinations] 01-28-2024 Episodic Anxiety disorders (1 source) Anxiety disorder, unspecified; Translations: [Anxiety disorder, unspecified] Onset: 06-20-2024 Chronic Other non-traumatic joint disorders (2 sources) Shoulder pain; Translations: [Pain in unspecified shoulder] 06-08-2024 Episodic Other non-traumatic joint disorders (2 sources) Pain in unspecified shoulder; Translations: [Pain in joint, shoulder region] 06-08-2024 Episodic Other non-traumatic joint disorders (1 source) Pain in left shoulder; Translations: [Pain in left shoulder] Onset: 06-08-2024 Episodic Spondylosis; intervertebral disc disorders; other back problems (2 sources) Muscle spasm of cervical muscle of neck; Translations: [Muscle spasm of back] 06-08-2024 Episodic Results Test Name Value Interpretation Reference Range Facility Basic Metabolic Panelon Anion gap [Moles/Vol] 9.1 mmol/L Normal 6.0-15.0 [facility] Comment on above: Performed By: #### B MP, CK, HS TROP, CBC #### [facility] [address] [place] [address] [place] Calcium [Mass/Vol] 8.6 mg/dL Normal 8.6-10.3 [facility] Comment on above: Performed By: #### B MP, CK, HS TROP, CBC #### [facility] [address] [place] [id number] [place] Chloride [Moles/Vol] 108 mmol/L High 98-107 [facility] Comment on above: Performed By: #### B MP, CK, HS TROP, CBC #### [facility] [address] [place] [id number] [place] CO2 [Moles/Vol] 24.8 mmol/L Normal 21.0-31.0 [facility] Comment on above: Performed By: #### B MP, CK, HS TROP, CBC #### [facility] [address] [place] [address] [place] Creatinine [Mass/Vol] 0.64 mg/dL Normal 0.60-1.20 [facility] Comment on above: Performed By: #### B MP, CK, HS TROP, CBC #### [facility] [address] [place] [address] [place] Creatinine Clr Calc Pharmacy 113.09 Normal [facility] Comment on above: Result Comment: PERF ORMED BY: [place] [address] PATHOLOGIST FITTING ROOM SUPERVISOR MARGOT MENDEZ M.D. Performed By: #### B MP, CK, HS TROP, CBC #### [place] [address] [place] GFR/1.73 sq M.predicted MDRD (S/P/Bld) [Vol rate/Area] mL/min/{1.73_m2} Normal [facility] Comment on above: Performed By: #### B MP, CK, HS TROP, CBC #### [address] Glucose [Mass/Vol] 88 mg/dL Normal 70-100 [facility] Comment on above: Result Comment: [facility] Glucose Reference Range is dependent on time and content of last meal. Glucose of more than 200 mg/dL in a nonstressed, ambulatory subject supports the diagnosis of Diabetes Mellitus. ADA recommended reference range Performed By: #### B MP, CK, HS TROP, CBC #### [address] Potassium [Moles/Vol] 3.9 mmol/L Normal 3.5-5.1 [facility] Comment on above: Performed By: #### B MP, CK, HS TROP, CBC #### [address] Sodium [Moles/Vol] 138 mmol/L Normal 136-145 [facility] Comment on above: Performed By: #### B MP, CK, HS TROP, CBC #### [place] [address] [place] Urea nitrogen [Mass/Vol] 11 mg/dL Normal 7-25 [facility] Comment on above: Performed By: #### B MP, CK, HS TROP, CBC #### [place] [address] [place] Basophils Auto (Bld) [#/Vol] Ordered By: Jason May on 06-08-2024 Basophils (Bld) [#/Vol] Automated basoph il count 0.0-0.2 [facility] Basophils/100 WBC Auto (Bld) Ordered By: Jason May on 06-08-2024 Basophils/100 WBC (Bld) Automated basoph il % . [facility] Calcium [Mass/volume] in Ser um or PlasmaOrdered By: Jason May on 06-08-2024 Calcium [Mass/Vol] Calcium [Mass/volume] in Serum or Plasma 8.6-10.3 [facility] Carbon dioxide, total [Moles /volume] in Serum or PlasmaOrdered By: Jason May on 06-08-2024 CO2 [Moles/Vol] Carbon dioxide, total [Moles/volume] in Serum or Plasma 21.0-31.0 [facility] Chloride [Moles/volume] in S lelia or PlasmaOrdered By: Jason May on 06-08-2024 Chloride [Moles/Vol] Chloride [Moles/volume] in Serum or Plasma High 98-107 [facility] Complete Blood Count Auto Di ffon 06-08-2024 Basophils (Bld) [#/Vol] 0.0 10*3/uL Normal 0.0-0.2 [facility] Comment on above: Result Comment: PERF ORMED BY: [facility] [address] [place] [address] PATHOLOGIST FITTING ROOM SUPERVISOR MARGOT MENDEZ M.D. Performed By: #### B MP, CK, HS TROP, CBC #### [facility] [address] [place] [address] [place] Basophils/100 WBC (Bld) 0.7 % Normal . [facility] Comment on above: Performed By: #### B MP, CK, HS TROP, CBC #### [facility] [address] [place] [address] [place] Eosinophils (Bld) [#/Vol] 0.1 10*3/uL Normal 0.0-0.45 [facility] Comment on above: Performed By: #### B MP, CK, HS TROP, CBC #### [facility] [address] [place] [address] [place] Eosinophils/100 WBC (Bld) 1.8 % Normal . [facility] Comment on above: Performed By: #### B MP, CK, HS TROP, CBC #### [address] Erythrocyte distribution width (RBC) [Ratio] 12.0 % Normal 11.9-15.3 [facility] Comment on above: Performed By: #### B MP, CK, HS TROP, CBC #### [address] Hematocrit (Bld) [Volume fraction] 37.9 % Normal 34.0-46.4 [facility] Comment on above: Performed By: #### B MP, CK, HS TROP, CBC #### [address] Hemoglobin (Bld) [Mass/Vol] 13.0 g/dL Normal 11.8-15.4 [facility] Comment on above: Performed By: #### B MP, CK, HS TROP, CBC #### [address] Lymphocytes (Bld) [#/Vol] 2.1 10*3/uL Normal 1.00-4.8 [facility] Comment on above: Performed By: #### B MP, CK, HS TROP, CBC #### [address] Lymphocytes/100 WBC (Bld) 32.6 % Normal . [facility] Comment on above: Performed By: #### B MP, CK, HS TROP, CBC #### [address] MCH (RBC) [Entitic mass] 32.1 pg Normal 24.7-34.3 [facility] Comment on above: Performed By: #### B MP, CK, HS TROP, CBC #### [address] MCV (RBC) [Entitic vol] 93.7 fL Normal 80-100 [facility] Comment on above: Performed By: #### B MP, CK, HS TROP, CBC #### [address] [place] [address] [place] Mean Corpuscular HGB Conc 34.3 g/dL Normal 32.0-35.0 [facility] Comment on above: Performed By: #### B MP, CK, HS TROP, CBC #### [address] Monocytes (Bld) [#/Vol] 0.5 10*3/uL Normal 0.0-0.8 [facility] Comment on above: Performed By: #### B MP, CK, HS TROP, CBC #### [place] [address] [place] Monocytes/100 WBC (Bld) 15.22 % Normal 0.00-20.00 [facility] Comment on above: Performed By: #### B MP, CK, HS TROP, CBC #### [address] Monocytes/100 WBC (Bld) 8.4 % Normal . [facility] Comment on above: Performed By: #### B MP, CK, HS TROP, CBC #### [address] Neutrophils (Bld) [#/Vol] 3.7 10*3/uL Normal 1.8-7.7 [facility] Comment on above: Performed By: #### B MP, CK, HS TROP, CBC #### [place] [address] [place] Neutrophils/100 WBC (Bld) 56.5 % Normal . [facility] Comment on above: Performed By: #### B MP, CK, HS TROP, CBC #### [place] [address] [place] NRBC% 0.1 /100{WBC} Normal 0-0.5 [facility] Comment on above: Performed By: #### B MP, CK, HS TROP, CBC #### [address] Platelet mean volume (Bld) [Entitic vol] 8.5 fL Normal 6.3-10.7 [facility] Comment on above: Performed By: #### B MP, CK, HS TROP, CBC #### [facility] [address] Platelets (Bld) [#/Vol] 241 10*3/uL Normal 150-450 [facility] Comment on above: Performed By: #### B MP, CK, HS TROP, CBC #### [facility] [address] RBC (Bld) [#/Vol] 4.05 10*6/uL Normal 3.60-5.00 [facility] Comment on above: Performed By: #### B MP, CK, HS TROP, CBC #### [facility] [address] WBC (Bld) [#/Vol] 6.5 10*3/uL Normal 3.8-11.6 [facility] Comment on above: Performed By: #### B MP, CK, HS TROP, CBC #### [facility] [address] Creatine Kinaseon 06-08-2024 CK [Catalytic activity/Vol] 122 U/L Normal 30-223 [facility] Comment on above: Performed By: #### B MP, CK, HS TROP, CBC #### [address] Creatine kinase [Enzymatic a ctivity/volume] in Serum or PlasmaOrdered By: Jason May on 06-08-2024 CK [Catalytic activity/Vol] Creatine kinase [Enzymatic activity/volume] in Serum or Plasma 30-223 [facility] Creatinine [Mass/volume] in Serum or PlasmaOrdered By: Jason May on 06-08-2024 Creatinine [Mass/Vol] Creatinine [Mass/volume] in Serum or Plasma 0.60-1.20 [facility] ECG 12 lead ECGon 06-08-2024 ECG 12 lead ECG [facility] Main [place] [address] [place] [address] Electrocardiograph Report Signed Patient: Karyn Carter MR#: [id number] : 1975 Acct:[id number] Age/Sex: 48 / F ADM Date: 06/08/24 Loc: ER Room: Type: [facility] ER Attending Dr: Ordering Provider: Jason May MD Date of Service: 06/08/2401/23/1052 ECG/ECG 12 lead ECG: Chest Pain Copies to: Test Reason : Blood Pressure : */* mmHG Vent. Rate : 68 BPM Atrial Rate : 68 BPM P-R Int : 128 ms QRS Dur : 84 ms QT Int : 396 ms P-R-T Axes : 65 -12 -35 degrees QTcB Int : 421 ms Normal sinus rhythm Nonspecific T wave abnormality Abnormal ECG No previous ECGs available Confirmed by JASON MAY MD ([id number]) on 06/08/2024 7:14:55 PM Referred By: Electronically Signed By: JASON MAY MD Transcribed By: [facility] Signed By Jason May MD 01/22 Normal [facility] Eosinophils Auto (Bld) [#/Vo l]Ordered By: Jason May on 06-08-2024 Eosinophils (Bld) [#/Vol] Automated eosinophil count 0.0-0.45 [facility] Eosinophils/100 WBC Auto (Bl d)Ordered By: Jason May on 06-08-2024 Eosinophils/100 WBC (Bld) Automated eosinophil % . [facility] Erythrocyte distribution wid th Auto (RBC) [Ratio]Ordered By: Jason May on 06-08-2024 Erythrocyte distribution width (RBC) [Ratio] Erythrocyte distribution width [Ratio] by Automated count 11.9-15.3 [facility] Glucose [Mass/volume] in Ser um or PlasmaOrdered By: Jason May on 06-08-2024 Glucose [Mass/Vol] Glucose [Mass/volume] in Serum or Plasma 70-100 [facility] Comment on above: ADA recommended refe rence rangeRandom Glucose Reference Range is dependent on time and content of last meal. Glucose of more than 200 mg/dL in a nonstressed, ambulatory subject supports the diagnosis of Diabetes Mellitus. Hematocrit Auto (Bld) [Volum e fraction]Ordered By: Jason May on 06-08-2024 Hematocrit (Bld) [Volume fraction] Hematocrit [Volume Fraction] of Blood by Automated count 34.0-46.4 [facility] Hemoglobin [Mass/volume] in BloodOrdered By: Jason May on 06-08-2024 Hemoglobin (Bld) [Mass/Vol] Hemoglobin [Mass/volume] in Blood 11.8-15.4 [facility] Leukocytes [#/volume] correc franklin for nucleated erythrocytes in Blood by Automated counOrdered By: Jason May on 06-08-2024 WBC corrected for nucl RBC Auto (Bld) [#/Vol] Leukocytes [#/volume] corrected for nucleated erythrocytes in Blood by Automated coun 3.8-11.6 [facility] Lymphocytes Auto (Bld) [#/Vo l]Ordered By: Jason May on 06-08-2024 Lymphocytes (Bld) [#/Vol] Lymphocytes [#/volume] in Blood by Automated count 1.00-4.8 [facility] Lymphocytes/100 WBC Auto (Bl d)Ordered By: Jason May on 06-08-2024 Lymphocytes/100 WBC (Bld) Lymphocytes/100 leukocytes in Blood by Automated count . [facility] MCH Auto (RBC) [Entitic mass ]Ordered By: Jason May on 06-08-2024 MCH (RBC) [Entitic mass] MCH [Entitic ma ss] by Automated count 24.7-34.3 [facility] MCHC Auto (RBC) [Mass/Vol]Or dered By: Jason May on 06-08-2024 MCHC (RBC) [Mass/Vol] MCHC [Mass/volume] by Automated count 32.0-35.0 [facility] MCV Auto (RBC) [Entitic vol] Ordered By: Jason May on 06-08-2024 MCV (RBC) [Entitic vol] MCV [Entitic volume] by Automated count 80-100 [facility] Monocyte distribution width [Entitic volume] in Blood by AutomatedOrdered By: Jason May on 06-08-2024 Monocyte distribution width Auto (Bld) [Entitic vol] Monocyte distribution width [Entitic volume] in Blood by Automated 0.00-20.00 [facility] Monocytes Auto (Bld) [#/Vol] Ordered By: Jason May on 06-08-2024 Monocytes (Bld) [#/Vol] Automated blood monocyte count 0.0-0.8 [facility] Monocytes/100 WBC Auto (Bld) Ordered By: Jason May on 06-08-2024 Monocytes/100 WBC (Bld) Automated monocy te % . [facility] Neutrophils Auto (Bld) [#/Vo l]Ordered By: Jason May on 06-08-2024 Neutrophils (Bld) [#/Vol] Neutrophils [#/volume] in Blood by Automated count 1.8-7.7 [facility] Neutrophils/100 WBC Auto (Bl d)Ordered By: Jason May on 06-08-2024 Neutrophils/100 WBC (Bld) Automated neutrophil % . [facility] No Panel InformationOrdered By: Jason May on 06-08-2024 Estimated GFR (CKD-EPI) > 60.0 mL/Min [facility] Creatinine Clearance (Chem 113.09 [facility] Nucleated erythrocytes [Pres ence] in Blood by Automated countOrdered By: Jason May on 06-08-2024 Nucleated RBC Auto Ql (Bld) Nucleated erythrocytes [Presence] in Blood by Automated count 0-0.5 [facility] Platelet mean volume Auto (B ld) [Entitic vol]Ordered By: Jason May on 06-08-2024 Platelet mean volume (Bld) [Entitic vol] Platelet mean volume [Entitic volume] in Blood by Automated count 6.3-10.7 [facility] Platelets Auto (Bld) [#/Vol] Ordered By: Jason May on 06-08-2024 Platelets (Bld) [#/Vol] Platelets [#/volume] in Blood by Automated count 150-450 [facility] Potassium [Moles/volume] in Serum or PlasmaOrdered By: Jason May on 06-08-2024 Potassium [Moles/Vol] Potassium [Moles/volume] in Serum or Plasma 3.5-5.1 [facility] RBC Auto (Bld) [#/Vol]Ordere d By: Jason May on 06-08-2024 RBC (Bld) [#/Vol] Erythrocytes [#/volume] in Blood by Automated count 3.60-5.00 [facility] Serum or plasma anion gap de terminationOrdered By: Jason May on 06-08-2024 Anion gap [Moles/Vol] Serum or plasma anion gap determination 6.0-15.0 [facility] Sodium [Moles/volume] in Ser um or PlasmaOrdered By: Jason May on 06-08-2024 Sodium [Moles/Vol] Sodium [Moles/volume] in Serum or Plasma 136-145 [facility] Troponin I High Sensitivityo n 06-08-2024 Troponin I High Sensitivity 3 Normal 0-15 [facility] Comment on above: Result Comment: The Troponin units of report have been changed to meet the Chest Pain Accreditation requirement, element EC5.M1l2. Troponin units are changed from pg/ml to ng/L. Also, the decimal is removed and results are in whole numbers. PERFORMED BY: [place] [address] PATHOLOGIST FITTING ROOM SUPERVISOR MARGOT MENDEZ M.D. Performed By: #### B MP, CK, HS TROP, CBC #### [address] Troponin I.cardiac [Mass/vol ume] in Serum or Plasma by Detection limit <= 0.01 ng/Ordered By: Jason May on 06-08-2024 Troponin I.cardiac DL <= 0.01 ng/mL [Mass/Vol] Troponin I.cardiac [Mass/volume] in Serum or Plasma by Detection limit <= 0.01 ng/ 0-15 [facility] Comment on above: The Troponin units o f report have been changed to meet the Chest Pain Accreditation requirement, element EC5.M1l2. Troponin units are changed from pg/ml to ng/L. Also, the decimal is removed and results are in whole numbers. Urea nitrogen [Mass/volume] in Serum or PlasmaOrdered By: Jason May on 06-08-2024 Urea nitrogen [Mass/Vol] Urea nitrogen [Mass/volume] in Serum or Plasma 7-25 [facility] WBC Auto (Bld) [#/Vol]Ordere d By: Jason May on 06-08-2024 WBC (Bld) [#/Vol] Leukocytes [#/volume] in Blood by Automated count 3.8-11.6 [facility] X-ray reportOrdered By: Jaison Eaton on 06-08-2024 Study report [facility] Main [place] [address] [place] [address] XRay Report Signed Patient: Karyn Carter MR#: [id number] : 1975 Acct:[id number] Age/Sex: 48 / F ADM Date: 5 Loc: ER Room: Type: [facility] ER Attending Dr: Copies to: Jason May MD~ Ordering Provider: Jason May MD Date of Service: 06/08/24 XR/XR chest 2V*: Chest Pain XR chest 2V* 06/08/2024 11:06 AM SIGNS AND SYMPTOMS: Shortness of breath, left arm pain PROTOCOL: Frontal and lateral radiographs of the chest COMPARISON: None FINDINGS: The trachea is midline. The heart and mediastinal structures are within normal limits. The lung parenchyma is clear. The bony thorax is intact. XR/XR chest 2V* IMPRESSION: No acute cardiopulmonary pathology. Impression dictated by: Jaison Eaton M.D.06/08/2024 11:51 AM Dictation Location: [facility]- Transcribed By: [facility] 06/08/24 1151 Dictated By: Jaison Eaton II, MD 06/08/24 1142 Signed By: 06/08/24 1151 [facility] Work Phone: XR chest 2V*on 06-08-2024 XR chest 2V* [facility] Main [address] [address] XRay Report Signed Patient: Karyn Carter MR#: [id number] : 1975 Acct:[id number] Age/Sex: 48 / F ADM Date: 06/08/24 Loc: ER Room: Type: [facility] ER Attending Dr: Copies to: Jason May MD Ordering Provider: Jason May MD Date of Service: 06/08/24 XR/XR chest 2V*: Chest Pain XR chest 2V* 06/08/2024 11:06 AM SIGNS AND SYMPTOMS: Shortness of breath, left arm pain PROTOCOL: Frontal and lateral radiographs of the chest COMPARISON: None FINDINGS: The trachea is midline. The heart and mediastinal structures are within normal limits. The lung parenchyma is clear. The bony thorax is intact. XR/XR chest 2V* IMPRESSION: No acute cardiopulmonary pathology. Impression dictated by: Jaison Eaton M.D.06/08/2024 11:51 AM Dictation Location: [place] [address] Transcribed By: [facility] 06/08/24 1151 Dictated By: Jaison Eaton II, MD 06/08/24 1142 Signed By: 06/08/24 1151 Normal [facility] CAROLA by IFAon 06-15-2022 Antinuclear Antibodies, IFA Negative Normal [facility] Comment on above: Result Comment: Nega tive <1:80 Borderline 1:80 Positive >1:80 ICAP nomenclature: AC-0 For more information about Hep-2 cell patterns use ANApatterns.org, the official website for the International Consensus on Antinuclear Antibody (CAROLA) Patterns (ICAP). Performed By: #### A NAIFA #### [facility] [address] [place] [address] Dr. Ryann Beasley INSULINon 06-12-2022 Insulin 8.8 uIU/mL Normal 2.6-24.9 [facility] Comment on above: Performed By: #### I NSULIN #### [facility] [address] [place] [address] [address] Ryann Beasley ANTISTREPTOLYSIN O AB (ASO)o n 06-11-2022 Antistreptolysin O Ab 70.8 IU/mL Normal 0.0-200.0 [facility] Comment on above: Performed By: #### U SELMA, CRP, TSH, CMP, T7 #### [facility] [address] [place] [address] [address] Ryann Beasley RHEUMATOID FACTORon 06-11-19 23 RA Latex Turbid. 11.2 IU/mL Normal <14.0 [facility] Comment on above: Performed By: #### U SELMA, CRP, TSH, CMP, T7 #### [facility] [address] [place] [address] Dr. Ryann Beasley CBC AUTO DIFFon 06-10-2022 BASO # 0.1 103/ul Normal 0.0-0.1 [facility] Comment on above: Performed By: #### U SELMA, CRP, TSH, CMP, T7 #### [facility] [address] [place] [address] Dr. Ryann Beasley Basophils/100 WBC (Bld) 0.7 % Normal 0.2-2.0 [facility] Comment on above: Performed By: #### U SELMA, CRP, TSH, CMP, T7 #### [facility] [address] [place] [address] Dr. Ryann Beasley EO # 0.1 103/ul Normal 0.0-0.7 [facility] Comment on above: Performed By: #### U SELMA, CRP, TSH, CMP, T7 #### [facility] [address] [place] [address] Dr. Ryann Beasley Eosinophils/100 WBC (Bld) 1.9 % Normal 0.9-7.0 [facility] Comment on above: Performed By: #### U SELMA, CRP, TSH, CMP, T7 #### [facility] [address] [place] [address] Dr. Ryann Beasley Erythrocyte distribution width (RBC) [Ratio] 11.4 % Normal 11.0-15.0 [facility] Comment on above: Performed By: #### U SELMA, CRP, TSH, CMP, T7 #### [facility] [address] [place] [address] Dr. Ryann Beasley Hematocrit (Bld) [Volume fraction] 41.1 % Normal 36.0-48.0 [facility] Comment on above: Performed By: #### U SELMA, CRP, TSH, CMP, T7 #### [facility] [address] [place] [address] Dr. Ryann Beasley Hemoglobin (Bld) [Mass/Vol] 13.8 g/dL Normal 12.0-16.0 [facility] Comment on above: Performed By: #### U SELMA, CRP, TSH, CMP, T7 #### [facility] [address] [place] [address] Dr. Ryann Beasley IG # 0.03 10e3/ul Normal 0.00-0.03 [facility] Comment on above: Performed By: #### U SELMA, CRP, TSH, CMP, T7 #### [facility] [address] [place] [address] Dr. Ryann Beasley IG % 0.4 % Normal 0.0-0.5 [facility] Comment on above: Performed By: #### U SELMA, CRP, TSH, CMP, T7 #### [facility] [address] [place] [address] Dr. Ryann Beasley LYMPH # 2.2 103/ul Normal 1.2-3.8 [facility] Comment on above: Performed By: #### U SELMA, CRP, TSH, CMP, T7 #### [facility] [address] [place] [address] Dr. Ryann Beasley Lymphocytes/100 WBC (Bld) 31.8 % Normal 20.5-60.0 [facility] Comment on above: Performed By: #### U SELMA, CRP, TSH, CMP, T7 #### [facility] [address] [place] [address] Dr. Ryann Beasley MANUAL DIFF REQ NO Normal [facility] Comment on above: Performed By: #### U SELMA, CRP, TSH, CMP, T7 #### [facility] [address] [place] [address] Dr. Ryann Beasley MCH (RBC) [Entitic mass] 31.1 pg Normal 26.7-34.0 [facility] Comment on above: Performed By: #### U SELMA, CRP, TSH, CMP, T7 #### [facility] [address] [place] [address] Dr. Ryann Beasley MCHC (RBC) [Mass/Vol] 33.6 g/dL Normal 29.9-35.2 [facility] Comment on above: Performed By: #### U SELMA, CRP, TSH, CMP, T7 #### [facility] [address] [place] [address] Dr. Ryann Beasley MCV (RBC) [Entitic vol] 92.6 fL Normal 81.0-99.0 [facility] Comment on above: Performed By: #### U SELMA, CRP, TSH, CMP, T7 #### [facility] [address] [address] [address] Ryann Beasley MONO # 0.5 103/ul Normal 0.3-0.8 [facility] Comment on above: Performed By: #### U SELMA, CRP, TSH, CMP, T7 #### [facility] [address] [place] [address] Dr. Ryann Beasley Monocytes/100 WBC (Bld) 7.1 % Normal 1.7-12.0 [facility] Comment on above: Performed By: #### U SELMA, CRP, TSH, CMP, T7 #### [facility] [address] [place] [address] Dr. Ryann Beasley NEUT # 4.0 103/ul Normal 1.4-6.5 [facility] Comment on above: Performed By: #### U SELMA, CRP, TSH, CMP, T7 #### [facility] [address] [place] [address] Dr. Ryann Beasley Neutrophils/100 WBC (Bld) 58.1 % Normal 43.0-75.0 [facility] Comment on above: Performed By: #### U SELMA, CRP, TSH, CMP, T7 #### [facility] [address] [place] [address] Dr. Ryann Beasley Platelet mean volume (Bld) [Entitic vol] 9.8 fL Normal 9.5-13.5 [facility] Comment on above: Performed By: #### U SELMA, CRP, TSH, CMP, T7 #### [facility] [address] [place] [address] Dr. Ryann Beasley PLT 273 103/ul Normal 150-450 [facility] Comment on above: Performed By: #### U SELMA, CRP, TSH, CMP, T7 #### [facility] [address] [place] [address] Dr. Ryann Beasley RBC 4.44 106/ul Normal 4.20-5.40 [facility] Comment on above: Performed By: #### U SELMA, CRP, TSH, CMP, T7 #### [facility] [address] [place] [address] Dr. Ryann Beasley WBC 7.0 103/ul Normal 4.0-11.0 [facility] Comment on above: Performed By: #### U SELMA, CRP, TSH, CMP, T7 #### [facility] [address] [address] [address] Ryann Beasley CRPon 06-10-2022 CRP [Mass/Vol] mg/L Normal <=1.0 [facility] Comment on above: Performed By: #### U SELMA, CRP, TSH, CMP, T7 #### [facility] [address] [address] [address] Ryann Beasley FREE THYROXINE INDEX T7on FTI 2.87 Normal 1.30-4.50 [facility] Comment on above: Performed By: #### U SELMA, CRP, TSH, CMP, T7 #### [facility] [address] [place] [address] Dr. Ryann Beasley T3U 35.0 % Normal 30.0-39.0 [facility] Comment on above: Performed By: #### U SELMA, CRP, TSH, CMP, T7 #### [facility] [address] [address] [address] Ryann Beasley T4 [Mass/Vol] 8.20 ug/dL Normal 4.80-13.90 The [facility] Comment on above: Performed By: #### U SELMA, CRP, TSH, CMP, T7 #### [facility] [address] [place] [address] Dr. Ryann Beasley GLYCOHEMOGLOBIN A1Con 2022 ADA RECOMMENDATION SEE BELOW Normal [facility] Comment on above: Result Comment: ADA RECOMMENDED LIMIT 4.0 - 6.0 ADA THERAPEUTIC TARGET < 7.0 ACTION SUGGESTED > 7.0 Performed By: #### U SELMA, CRP, TSH, CMP, T7 #### [facility] [address] [place] [address] Dr. Ryann Beasley Glucose [Mass/Vol] 108 mg/dL Normal [facility] Comment on above: Performed By: #### U SELMA, CRP, TSH, CMP, T7 #### [facility] [address] [place] [address] Dr. Ryann Beasley HbA1c (Bld) [Mass fraction] 5.4 % Normal 4.5-6.2 [facility] Comment on above: Performed By: #### U SELMA, CRP, TSH, CMP, T7 #### [facility] [address] [address] [address] Ryann Beasley PROF 14(COMP METB)on 023 Albumin [Mass/Vol] 3.8 g/dL Normal 3.4-5.[address] [facility] Comment on above: Performed By: #### U SELMA, CRP, TSH, CMP, T7 #### [facility] [address] [address] [address] Ryann Beasley Albumin/Globulin [Mass ratio] 1.2 {ratio} Normal [facility] Comment on above: Performed By: #### U SELMA, CRP, TSH, CMP, T7 #### [facility] [address] [address] [address] Ryann Beasley ALP [Catalytic activity/Vol] 49 U/L Normal 46-116 [facility] Comment on above: Performed By: #### U SELMA, CRP, TSH, CMP, T7 #### [facility] [address] [address] [address] Ryann Beasley ALT [Catalytic activity/Vol] 24 U/L Normal 14-59 [facility] Comment on above: Performed By: #### U SELMA, CRP, TSH, CMP, T7 #### [facility] [address] [address] [address] Ryann Beasley Anion gap [Moles/Vol] 14.3 mmol/L Normal [facility] Comment on above: Performed By: #### U SELMA, CRP, TSH, CMP, T7 #### [facility] [address] [address] [address] Ryann Beasley AST [Catalytic activity/Vol] 22 U/L Normal 15-37 [facility] Comment on above: Performed By: #### U SELMA, CRP, TSH, CMP, T7 #### [facility] [address] [address] [address] Ryann Beasley Bilirubin [Mass/Vol] 0.5 mg/dL Normal 0.2-1.0 [facility] Comment on above: Performed By: #### U SELMA, CRP, TSH, CMP, T7 #### [facility] [address] [address] [address] Ryann Beasley Calcium [Mass/Vol] 9.2 mg/dL Normal 8.5-10.[address] [facility] Comment on above: Performed By: #### U SELMA, CRP, TSH, CMP, T7 #### [facility] [address] [address] [address] Ryann Beasley Chloride [Moles/Vol] 104 mmol/L Normal 98-107 [facility] Comment on above: Performed By: #### U SELMA, CRP, TSH, CMP, T7 #### [facility] [address] [place] [address] Dr. Ryann Beasley CO2 [Moles/Vol] 27.5 mmol/L Normal 21.0-32.0 [facility] Comment on above: Performed By: #### U SELMA, CRP, TSH, CMP, T7 #### [facility] [address] [place] [address] Dr. Ryann Beasley Creatinine [Mass/Vol] 0.63 mg/dL Normal 0.55-1.02 [facility] Comment on above: Performed By: #### U SELMA, CRP, TSH, CMP, T7 #### [facility] [address] [place] [address] Dr. Ryann Beasley EGFR-AF IRISH >60 Normal >=60 [facility] Comment on above: Performed By: #### U SELMA, CRP, TSH, CMP, T7 #### [facility] [address] [place] [address] Dr. Ryann Beasley EGFR-NON AF IRISH >60 Normal >=60 [facility] Comment on above: Performed By: #### U SELMA, CRP, TSH, CMP, T7 #### [facility] [address] [place] [address] Dr. Ryann Beasley Globulin (S) [Mass/Vol] 3.3 g/dL Normal T [facility] Comment on above: Performed By: #### U SELMA, CRP, TSH, CMP, T7 #### [facility] [address] [address] [address] Ryann Beasley Glucose [Mass/Vol] 107 mg/dL Critically high 74-[address] [facility] Comment on above: Performed By: #### U SELMA, CRP, TSH, CMP, T7 #### [facility] [address] [place] [address] Dr. Ryann Beasley Potassium [Moles/Vol] 3.8 mmol/L Normal 3.5-5.1 [facility] Comment on above: Performed By: #### U SELMA, CRP, TSH, CMP, T7 #### [facility] [address] [address] [address] Ryann Beasley Protein [Mass/Vol] 7.1 g/dL Normal 6.4-8.2 [facility] Comment on above: Performed By: #### U SELMA, CRP, TSH, CMP, T7 #### [facility] [address] [address] [address] Ryann Beasley Sodium [Moles/Vol] 142 mmol/L Normal 136-145 [facility] Comment on above: Performed By: #### U SELMA, CRP, TSH, CMP, T7 #### [facility] [address] [address] [address] Ryann Beasley Urea nitrogen [Mass/Vol] 12.0 mg/dL Normal 7.0-18.0 [facility] Comment on above: Performed By: #### U SELMA, CRP, TSH, CMP, T7 #### [facility] [address] [place] [address] Dr. Ryann Beasley Urea nitrogen/Creatinine [Mass ratio] 19.0 mg/mg Normal [facility] Comment on above: Performed By: #### U SELMA, CRP, TSH, CMP, T7 #### [facility] [address] [place] [address] Dr. Ryann Beasley TSHon 06-10-2022 TSH 3.122 uIU/mL Normal 0.358-3.740 [facility] Comment on above: Performed By: #### U SELMA, CRP, TSH, CMP, T7 #### [facility] [address] [address] [address] Ryann Beasley URIC ACID SERUMon 06-10-2022 Urate [Mass/Vol] 4.3 mg/dL Normal 2.6-6.0 [facility] Comment on above: Performed By: #### U SELMA, CRP, TSH, CMP, T7 #### [facility] [address] [address] [address] Ryann Beasley INSULINon 01-26-2022 Insulin 9.7 uIU/mL Normal 2.6-24.9 [facility] Comment on above: Performed By: #### I NSULIN #### [facility] [address] [place] [address] Dr. Ryann Beasley T4, T3U, FTI [facility]on 01-26 Free Thyroxine Index 4.6 Normal 1.2-4.9 [facility] Comment on above: Performed By: #### U SELMA, CRP, TSH, CMP, T7 #### [facility] [address] [address] [address] Ryann Beasley T3 Uptake 44 % Critically high 24-39 [facility] Comment on above: Performed By: #### U SELMA, CRP, TSH, CMP, T7 #### [facility] [address] [address] [address] Ryann Beasley T4 [Mass/Vol] 10.5 ug/dL Normal 4.5-12.0 The [facility] Comment on above: Performed By: #### U SELMA, CRP, TSH, CMP, T7 #### [facility] [address] [place] [address] Dr. Ryann Beasley CBC AUTO DIFFon 01-25-2022 BASO # 0.1 103/ul Normal 0.0-0.1 [facility] Comment on above: Performed By: #### U SELMA, CRP, TSH, CMP, T7 #### [facility] [address] [place] [address] Dr. Ryann Beasley Basophils/100 WBC (Bld) 0.6 % Normal 0.2-2.0 [facility] Comment on above: Performed By: #### U SELMA, CRP, TSH, CMP, T7 #### [facility] [address] [address] [address] Ryann Beasley EO # 0.2 103/ul Normal 0.0-0.7 [facility] Comment on above: Performed By: #### U SELMA, CRP, TSH, CMP, T7 #### [facility] [address] [address] [address] Ryann Beasley Eosinophils/100 WBC (Bld) 1.8 % Normal 0.9-7.0 [facility] Comment on above: Performed By: #### U SELMA, CRP, TSH, CMP, T7 #### [facility] [address] [place] [address] Dr. Ryann Beasley Erythrocyte distribution width (RBC) [Ratio] 11.6 % Normal 11.0-15.0 [facility] Comment on above: Performed By: #### U SELMA, CRP, TSH, CMP, T7 #### [facility] [address] [place] [address] Dr. Ryann Beasley Hematocrit (Bld) [Volume fraction] 42.0 % Normal 36.0-48.0 [facility] Comment on above: Performed By: #### U SELMA, CRP, TSH, CMP, T7 #### [facility] [address] [place] [address] Dr. Ryann Beasley Hemoglobin (Bld) [Mass/Vol] 14.0 g/dL Normal 12.0-16.0 [facility] Comment on above: Performed By: #### U SELMA, CRP, TSH, CMP, T7 #### [facility] [address] [place] [address] Dr. Ryann Beasley IG # 0.04 10e3/ul Critically high 0.00-0.[address] [facility] Comment on above: Performed By: #### U SELMA, CRP, TSH, CMP, T7 #### [facility] [address] [place] [address] Dr. Ryann Beasley IG % 0.5 % Normal 0.0-0.5 [facility] Comment on above: Performed By: #### U SELMA, CRP, TSH, CMP, T7 #### [facility] [address] [place] [address] Dr. Ryann Beasley LYMPH # 2.3 103/ul Normal 1.2-3.8 [facility] Comment on above: Performed By: #### U SELMA, CRP, TSH, CMP, T7 #### [facility] [address] [place] [address] Dr. Ryann Beasley Lymphocytes/100 WBC (Bld) 27.0 % Normal 20.5-60.0 [facility] Comment on above: Performed By: #### U SELMA, CRP, TSH, CMP, T7 #### [facility] [address] [place] [address] Dr. Ryann Beasley MANUAL DIFF REQ NO Normal [facility] Comment on above: Performed By: #### U SELMA, CRP, TSH, CMP, T7 #### [facility] [address] [place] [address] Dr. Ryann Beasley MCH (RBC) [Entitic mass] 32.0 pg Normal 26.7-34.0 [facility] Comment on above: Performed By: #### U SELMA, CRP, TSH, CMP, T7 #### [facility] [address] [place] [address] Dr. Ryann Beasley MCHC (RBC) [Mass/Vol] 33.3 g/dL Normal 29.9-35.2 [facility] Comment on above: Performed By: #### U SELMA, CRP, TSH, CMP, T7 #### [facility] [address] [place] [address] Dr. Ryann Beasley MCV (RBC) [Entitic vol] 95.9 fL Normal 81.0-99.0 [facility] Comment on above: Performed By: #### U SELMA, CRP, TSH, CMP, T7 #### [facility] [address] [place] [address] Dr. Ryann Beasley MONO # 0.7 103/ul Normal 0.3-0.8 [facility] Comment on above: Performed By: #### U SELMA, CRP, TSH, CMP, T7 #### [facility] [address] [place] [address] Dr. Ryann Beasley Monocytes/100 WBC (Bld) 7.8 % Normal 1.7-12.0 [facility] Comment on above: Performed By: #### U SELMA, CRP, TSH, CMP, T7 #### [facility] [address] [address] [address] Ryann Beasley NEUT # 5.2 103/ul Normal 1.4-6.5 [facility] Comment on above: Performed By: #### U SELMA, CRP, TSH, CMP, T7 #### [facility] [address] [place] [address] Dr. Ryann Beasley Neutrophils/100 WBC (Bld) 62.3 % Normal 43.0-75.0 [facility] Comment on above: Performed By: #### U SELMA, CRP, TSH, CMP, T7 #### [facility] [address] [place] [address] Dr. Ryann Beasley Platelet mean volume (Bld) [Entitic vol] 10.0 fL Normal 9.5-13.5 [facility] Comment on above: Performed By: #### U SELMA, CRP, TSH, CMP, T7 #### [facility] [address] [place] [address] Dr. Ryann Beasley PLT 231 103/ul Normal 150-450 [facility] Comment on above: Performed By: #### U SELMA, CRP, TSH, CMP, T7 #### [facility] [address] [place] [address] Dr. Ryann Beasley RBC 4.38 106/ul Normal 4.20-5.40 [facility] Comment on above: Performed By: #### U SELMA, CRP, TSH, CMP, T7 #### [facility] [address] [place] [address] Dr. Ryann Beasley WBC 8.3 103/ul Normal 4.0-11.0 [facility] Comment on above: Performed By: #### U SELMA, CRP, TSH, CMP, T7 #### [facility] [address] [place] [address] Dr. Ryann Beasley GLYCOHEMOGLOBIN A1Con 2021 ADA RECOMMENDATION SEE BELOW Normal [facility] Comment on above: Result Comment: ADA RECOMMENDED LIMIT 4.0 - 6.0 ADA THERAPEUTIC TARGET < 7.0 ACTION SUGGESTED > 7.0 Performed By: #### A 1C #### [facility] [address] [address] [address] Ryann Beasley Glucose [Mass/Vol] 100 mg/dL Normal [facility] Comment on above: Performed By: #### A 1C #### [facility] [address] [address] [address] Ryann Beasley HbA1c (Bld) [Mass fraction] 5.1 % Normal 4.5-6.2 [facility] Comment on above: Performed By: #### A 1C #### [facility] [address] [address] [address] Ryann Beasley IRONon 01-25-2022 Iron [Mass/Vol] 64.0 ug/dL Normal 50.0-170.0 [facility] Comment on above: Performed By: #### U SELMA, CRP, TSH, CMP, T7 #### [facility] [address] [address] [address] Ryann Beasley LIPID PROFILEon 01-25-2022 CHOL-HDL RATIO NORM SEE BELOW Normal [facility] Comment on above: Result Comment: 3.3 - 4.4 LOW RISK 4.4 - 7.1 AVERAGE RISK 7.1 - 11.0 MODERATE RISK >11.0 HIGH RISK Performed By: #### U SELMA, CRP, TSH, CMP, T7 #### [facility] [address] [address] [address] Ryann Beasley Cholesterol [Mass/Vol] 201 mg/dL Critically high <=200 [facility] Comment on above: Performed By: #### U SELMA, CRP, TSH, CMP, T7 #### [facility] [address] [address] [address] Ryann Beasley Cholesterol in HDL [Mass/Vol] 54 mg/dL Normal 40-60 [facility] Comment on above: Performed By: #### U SELMA, CRP, TSH, CMP, T7 #### [facility] [address] [address] [address] Ryann Beasley Cholesterol in LDL [Mass/Vol] 129.4 mg/dL Normal [facility] Comment on above: Performed By: #### U SELMA, CRP, TSH, CMP, T7 #### [facility] [address] [address] [address] Ryann Beasley Cholesterol.total/Choles terol in HDL [Mass ratio] 3.7 {ratio} Normal [facility] Comment on above: Performed By: #### U SELMA, CRP, TSH, CMP, T7 #### [facility] [address] [address] [address] Ryann Beasley HDL NORMAL > or = 60 mg/dl - LOW CARDIOVASCULAR RISK <40 mg/dl - HIGH CARDIOVASCULAR RISK Normal [facility] Comment on above: Performed By: #### U SELMA, CRP, TSH, CMP, T7 #### [facility] [address] [address] [address] Ryann Beasley LDL CALC NORMAL SEE BELOW Normal [facility] Comment on above: Result Comment: <100 mg/dl OPTIMAL 100 - 129 mg/dl NEAR OR ABOVE OPTIMAL 130 - 159 mg/dl BORDERLINE HIGH 160 - 189 mg/dl HIGH >190 mg/dl VERY HIGH Performed By: #### U SELMA, CRP, TSH, CMP, T7 #### [facility] [address] [address] [address] Ryann Beasley Triglyceride [Mass/Vol] 88 mg/dL Normal <=[address] [facility] Comment on above: Performed By: #### U SELMA, CRP, TSH, CMP, T7 #### [facility] [address] [address] [address] Ryann Beasley VLDL CALC 17.6 mg/dL Normal [facility] Comment on above: Performed By: #### U SELMA, CRP, TSH, CMP, T7 #### [facility] [address] [address] [address] Ryann Beasley PROF 14(COMP METB)on 022 Albumin [Mass/Vol] 4.1 g/dL Normal 3.4-5.[address] [facility] Comment on above: Performed By: #### U SELMA, CRP, TSH, CMP, T7 #### [facility] [address] [address] [address] Ryann Beasley Albumin/Globulin [Mass ratio] 1.3 {ratio} Normal [facility] Comment on above: Performed By: #### U SELMA, CRP, TSH, CMP, T7 #### [facility] [address] [address] [address] Ryann Beasley ALP [Catalytic activity/Vol] 46 U/L Normal 46-116 [facility] Comment on above: Performed By: #### U SELMA, CRP, TSH, CMP, T7 #### [facility] [address] [address] [address] Ryann Beasley ALT [Catalytic activity/Vol] 21 U/L Normal 14-59 [facility] Comment on above: Performed By: #### U SELMA, CRP, TSH, CMP, T7 #### [facility] [address] [address] [address] Ryann Beasley Anion gap [Moles/Vol] 13.2 mmol/L Normal [facility] Comment on above: Performed By: #### U SELMA, CRP, TSH, CMP, T7 #### [facility] [address] [place] [address] Dr. Ryann Beasley AST [Catalytic activity/Vol] 8 U/L Critically low 15-37 [facility] Comment on above: Performed By: #### U SELMA, CRP, TSH, CMP, T7 #### [facility] [address] [address] [address] Ryann Beasley Bilirubin [Mass/Vol] 0.3 mg/dL Normal 0.2-1.0 [facility] Comment on above: Performed By: #### U SELMA, CRP, TSH, CMP, T7 #### [facility] [address] [place] [address] Dr. Ryann Beasley Calcium [Mass/Vol] 9.3 mg/dL Normal 8.5-10.[address] [facility] Comment on above: Performed By: #### U SELMA, CRP, TSH, CMP, T7 #### [facility] [address] [address] [address] Ryann Beasley Chloride [Moles/Vol] 104 mmol/L Normal 98-107 [facility] Comment on above: Performed By: #### U SELMA, CRP, TSH, CMP, T7 #### [facility] [address] [address] [address] Ryann Beasley CO2 [Moles/Vol] 26.8 mmol/L Normal 21.0-32.0 [facility] Comment on above: Performed By: #### U SELMA, CRP, TSH, CMP, T7 #### [facility] [address] [address] [address] Ryann Beasley Creatinine [Mass/Vol] 0.64 mg/dL Normal 0.55-1.02 [facility] Comment on above: Performed By: #### U SELMA, CRP, TSH, CMP, T7 #### [facility] [address] [address] [address] Ryann Beasley EGFR-AF IRISH >60 Normal >=60 [facility] Comment on above: Performed By: #### U SELMA, CRP, TSH, CMP, T7 #### [facility] [address] [address] [address] Ryann Beasley EGFR-NON AF IRISH >60 Normal >=60 [facility] Comment on above: Performed By: #### U SELMA, CRP, TSH, CMP, T7 #### [facility] [address] [address] [address] Ryann Beasley Globulin (S) [Mass/Vol] 3.1 g/dL Normal T [facility] Comment on above: Performed By: #### U SELMA, CRP, TSH, CMP, T7 #### [facility] [address] [address] [address] Ryann Beasley Glucose [Mass/Vol] 103 mg/dL Normal 74-[address] [facility] Comment on above: Performed By: #### U SELMA, CRP, TSH, CMP, T7 #### [facility] [address] [address] [address] Ryann Beasley Potassium [Moles/Vol] 4.0 mmol/L Normal 3.5-5.1 [facility] Comment on above: Performed By: #### U SELMA, CRP, TSH, CMP, T7 #### [facility] [address] [address] [address] Ryann Beasley Protein [Mass/Vol] 7.2 g/dL Normal 6.4-8.2 [facility] Comment on above: Performed By: #### U SELMA, CRP, TSH, CMP, T7 #### [facility] [address] [place] [address] Dr. Ryann Beasley Sodium [Moles/Vol] 140 mmol/L Normal 136-145 [facility] Comment on above: Performed By: #### U SELMA, CRP, TSH, CMP, T7 #### [facility] [address] [place] [address] Dr. Ryann Beasley Urea nitrogen [Mass/Vol] 16.0 mg/dL Normal 7.0-18.0 [facility] Comment on above: Performed By: #### U SELMA, CRP, TSH, CMP, T7 #### [facility] [address] [place] [address] Dr. Ryann Beasley Urea nitrogen/Creatinine [Mass ratio] 25.0 mg/mg Normal [facility] Comment on above: Performed By: #### U SELMA, CRP, TSH, CMP, T7 #### [facility] [address] [place] [address] Dr. Ryann Beasley TSHon 01-25-2022 TSH 2.706 uIU/mL Normal 0.358-3.740 The [facility] Comment on above: Performed By: #### L IPID, CMP, TSH #### [facility] [address] [place] [address] Dr. Ryann Beasley Vital Signs Date Time Vital Sign Value Performing Clinician Facility 06-20-2024 14:17-0500 Body temperature 97.9 [degF] Anna Hill MD Work Phone: [facility] 06-20-2024 14:17-0500 Diastolic blood pressure 94 mm[Hg] Anna Hill MD Work Phone: [facility] 06-20-2024 14:17-0500 Heart rate 95 /min Anna Hill MD Work Phone: [facility] 06-20-2024 14:17-0500 Respiratory rate 18 /min Anna Hill MD Work Phone: [facility] 06-20-2024 14:17-0500 SaO2% (BldA) [Mass fraction] 97 % Anna Hill MD Work Phone: [facility] 06-20-2024 14:17-0500 Systolic blood pressure 137 mm[Hg] Anna Hill MD Work Phone: [facility] 06-20-2024 14:14-0500 Body height 157.48 cm Anna Hill MD Work Phone: [facility] 06-20-2024 14:14-0500 Body weight 80 kg Anna Hill MD Work Phone: [facility] 06-08-2024 12:22-0500 Diastolic blood pressure 60 mm[Hg] Anna Hill MD Work Phone: [facility] 06-08-2024 12:22-0500 Heart rate 80 /min Anna Hill MD Work Phone: [facility] 06-08-2024 12:22-0500 Respiratory rate 18 /min Anna Hill MD Work Phone: [facility] 06-08-2024 12:22-0500 SaO2% (BldA) [Mass fraction] 98 % Anna Hill MD Work Phone: [facility] 06-08-2024 12:22-0500 Systolic blood pressure 132 mm[Hg] Anna Hill MD Work Phone: [facility] 06-08-2024 10:47-0500 Body height 157.48 cm Anna Hill MD Work Phone: [facility] 06-08-2024 10:47-0500 Body temperature 97.9 [degF] Anna Hill MD Work Phone: [facility] 06-08-2024 10:47-0500 Body weight 91.45 kg Anna Hill MD Work Phone: [facility] 06-08-2024 09:52-0500 Body height 157.48 cm [facility] 06-08-2024 09:52-0500 Body mass index (BMI) [Ratio] 33.5 kg/m2 [facility] 06-08-2024 09:52-0500 Body temperature 98.5 [degF] [facility] 06-08-2024 09:52-0500 Body weight 83.23 kg [facility] 06-08-2024 09:52-0500 Heart rate 76 /min [facility] 06-08-2024 09:52-0500 Respiratory rate 18 /min [facility] 06-08-2024 09:52-0500 SaO2% (BldA) [Mass fraction] 96 % [facility] 01-28-2024 18:43-0400 Body height 157.5 cm Heide Michael [employer] Work Phone: [facility] 01-28-2024 18:43-0400 Body mass index (BMI) [Ratio] 31.64 kg/m2 Heidenaresh Michael [employer] Work Phone: [facility] 01-28-2024 18:43-0400 Body temperature 97 [degF] Heide Michael [employer] Work Phone: [facility] 01-28-2024 18:43-0400 Body weight 78.47 kg Heidenaresh Michael [employer] Work Phone: [facility] 01-28-2024 18:43-0400 Diastolic blood pressure 80 mm[Hg] Heide Michael [employer] Work Phone: [facility] 01-28-2024 18:43-0400 Heart rate 79 /min Heide Michael [employer] Work Phone: [facility] 01-28-2024 18:43-0400 SaO2% (BldA) [Mass fraction] 99 % Heide Michael [employer] Work Phone: [facility] 01-28-2024 18:43-0400 Systolic blood pressure 110 mm[Hg] Heide Michael [employer] Work Phone: [facility] Encounters Encounter Date Encounter Type Care Provider Facility Start: 06-20-2024 End: 06-20-2024 Emergency department patient visit Anna Hill MD Work Phone: [facility] Work Phone: Start: 06-08-2024 End: 06-08-2024 Emergency department patient visit Anna Hill MD Work Phone: [facility] Work Phone: Start: 06-08-2024 End: 06-08-2024 ambulatory [facility] Work Phone: Start: 06-08-2024 End: 06-08-2024 Patient encounter procedure [facility] Work Phone: Start: 01-28-2024 End: 01-28-2024 ambulatory HEIDE MICHAEL Not Available Start: 01-28-2024 End: 01-28-2024 Office outpatient visit 15 minutes Heide Michael [employer] Work Phone: [facility] Comment on above: Physical examination of employee (Primary Dx) Start: 07-20-[address] ANNA HILL . Facili ty:[facility] Start: 06-16-[address] ANNA HILL . Facili ty:[facility] Start: 06-16-2022 Encounter for genera l adult medical examination without abnormal findings DR ANNA HILL . [facility] Start: 06-10-2022 End: 06-11-[address] ANNA HILL . Facility:[facility] Start: 06-10-2022 End: 06-11-2022 Encounter for general adult medical examination without abnormal findings DR ANNA HILL . Facility:[facility] Start: 01-25-2022 End: 01-26-[address] ANNA HILL . Facility:[facility] Procedures Date Procedure Procedure Detail Performing Clinician Start: 06-08-2024 Plain chest X-ray Isabelle Hill MD Work Phone: Plan of Treatment Date Care Activity Detail Author Patient Education [facility] Work Phone: Patient referral [facility] Work Phone: Payers Date Payer Category Payer Self-pay 2023 Unknown BCBS BCBS xxxxxx [id number] 2023-Present [phone] [address] [place] [address] [id number] 1975 Unknown [id number] 1975 Unknown [id number] 1975 Unknown [id number] 1975 Unknown [id number] 1975 Unknown [id number] 1959 Self-pay [id number] 1959 Unknown [id number] Unknown [id number] Unknown [id number] Social History Date Type Detail Facility Tobacco smoking status WIIS Tobacco smoking consumption unknown [facility] Start: 1975 Sex assigned at Not on file [facility] Gender identity Not on file [facility] are Start: 06-08-2024 End: 06-20-2024 Tobacco smoking status NHIS Ex-smoker (finding) [facility] Start: 06-08-2024 End: 06-20-2024 Sex Female (finding) [facility] Start: 1975 Sex Assigned At Female [facility] Start: 06-08-2024 Tobacco smoking status NHIS Never smoked tobacco (finding) [facility] NEGATED: Highlighted row [facility] Evaluation note 06-08-2024 Note Date & Type Note Facility 06-08-2024 Evaluation note Diagnosis Onset Date Resolution Shoulder pain acute May 92024 9:18am [facility] Work Phone: History of Present illness Narrative 01-28-2024 Martinez Sharma MA - 01/28/2024 6:30 PM EDTRebrittani Michael NP - 01/28/2024 6:30 PM EDT Note Date & Type Note Facility 01-28-2024 History of Presen t illness Narrative Pt presents today for a biometric screening Physical Exam for Rijessika. Pt verified by photo ID. Subjective Patient ID: Karyn Carter is a 48 y.o. female. HPI The following portions of the chart were reviewed this encounter and updated as appropriate: @RULESMARTLINK([id number],TOBYESPROV)@@RULE SMARTLINK([id number],ALGYESPROV)@@RULESM ARTLINK([id number],MEDYESPROV)@@RULESMARTLI NK([id number],PROBYESPROV)@@RULESMARTLIN K([id number],MHYESPROV)@@RULESMARTLINK([id number] ,SHYESPROV)@@RULESMARTLINK([id number], FHYESPROV)@@RULESMARTLINK([id number],SOHYES PROV)@ Review of Systems Objective Physical ExamExamination General Examination: General Examination: in no acute distress, well developed, well nourished. HEAD: normocephalic atraumatic. Eyes: extraocular movement intact (EOMI) fundus normal pupils equal, round, reactive to light. EARS: auditory canal clear tympanic membrane intact, clear. NOSE: no lesions nares patent. ORAL CAVITY: no lesions mucosa moist. Throat: clear. NECK/THYROID: neck supple, full range of motion. LYMPH NODES: no cervical adenopathy. SKIN: No rashes HEART: no murmurs, regular rate and rhythm, S1, S2 normal. LUNGS: clear to auscultation bilaterally. ABDOMEN: soft, non tender, non distended no hepatosplenomegaly no masses palpable. MUSCULOSKELETAL: normal. EXTREMITIES: no clubbing, cyanosis, or edema. PERIPHERAL PULSES: normal. NEUROLOGIC: nonfocal cranial nerves 2-12 grossly intact. PSYCH: alert, oriented cognitive function intact cooperative with exam. Procedures Assessment/Plan documented in this encounter [facility] Instructions 01-28-2024 Patient Instructions Note Date & Type Note Facility 01-28-2024 Instructions Heide Michael NP - 01/28/2024 6:30 PM EDT Paperwork completed, no concerns noted Healthy 48 year old, no regular meds except adderall for ADHD documented in this encounter [facility] Evaluation note Note Date & Type Note Facility Evaluation note Diagnosis Physical examination of employee- Primary documented in this encounter [facility] Evaluation note Note Date & Type Note Facility Evaluation note No assessment information [facility] Work Phone: Summary Purpose Family History No Family History Records Found Relationship Condition Age at Onset Recorded Date/T joseph mother Diabetes mellitus Unknown father Malignant neoplasm Unknown Advance Directives No Advanced Directives Records Found Advance Directive Response Recorded Date/ Time Advance Directives No June 08, 2024 9:14am Chief Complaint and Reason for Visit Chief Complaint Admit Date shoulder pain June 08, 2024 9 :18am Chief Complaint Admit Date shoulder pain June 08, 2024 9 :18am left shoulder pain June 08, 2024 1 0:43am Reason for Visit Admit Date Shoulder pain June 08, 2024 9 :18am Chief Complaint Admit Date shoulder pain June 08, 2024 9 :18am left shoulder pain June 08, 2024 1 0:43am headache June 20, 2024 2:01pm Additional Source Comments INFORMATION SOURCE (unrecogn ized section and content) DATE CREATED AUTHOR 07/21/2022 [facility] DATE CREATED AUTHOR AUTHOR'S ORGANIZ ATION 01/29/2024 [facility] EPIC DATE CREATED AUTHOR AUTHOR'S ORGANIZ ATION 07/03/2024 [facility] Care Teams (unrecognized sec tion and content) Team Status: Active Member Role Status Dates Anna Hill MD Primary Care Provider Active Team Status: Inactive Member Role Status Dates Anna Hill MD Primary Care Provider Active Start: June 08, 2024 End: June 08, 2024 Anh Burgess APRN Attending Provider Active S tart: June 08, 2024 End: June 08, 2024 Team Status: Inactive Member Role Status Dates Anna Hill MD Primary Care Provider Active Start: June 08, 2024 End: June 08, 2024 Jason May MD Emergency Provider Active St art: June 08, 2024 End: June 08, 2024 Team Status: Inactive Member Role Status Dates Anna Hill MD Primary Care Provider Active Start: June 20, 2024 End: June 20, 2024 Cruz Painting APRN Emergency Provider Active Start: June 20, 2024 End: June 20, 2024 Goals (unrecognized section and content) Goals may be documented in a n alternate sectionGoals may be documented in an alternate sectionGoals may be documented in an alternate section FOR RECORDS PERTAINING TO PATIENTS WHO ARE [...] BE BASED ON THE PRIMARY CLINICAL RECORDS. [facility] [employer] provides no warranty or guarantee of the accuracy or completeness of information in this document.
[2024-08-06 09:58] LABS: Estimated Average Glucose 105 mg/dL; Glycohemoglobin A1C 5.3 % (4.5-6.2)
[2024-08-06 10:20] LABS: Alanine Aminotransferase 32 U/L (14-59); Albumin Globulin Ratio 1.1; Alkaline Phosphatase 47 U/L (46-116); Anion Gap 9.6; Aspartate Amino Transferase 12 U/L (15-37); BUN Creatinine Ratio 18.1; Bilirubin Total 0.4 mg/dL (0.2-1.0); Calcium 9.3 mg/dL (8.5-10.1); Carbon Dioxide 30.5 mmol/L (21.0-32.0); Chloride 102 mmol/L (98-107); Chol HDL Ratio 3.3; Cholesterol 252 mg/dL (<=200); Estimated GFR (African America >60 (>=60 mL/min/1.73m^2); Estimated GFR (Non-African Ame >60 (>=60 mL/min/1.73m^2); Free T3 2.67 pg/mL (2.18-3.98); Globulin 3.5 g/dL; Glucose 98 mg/dL (74-106); HDL Cholesterol 76 mg/dL (40-60); Potassium 4.1 mmol/L (3.5-5.1); Sodium 138 mmol/L (136-145); Thyroid Stimulating Hormone 2.545 uIU/mL (0.358-3.740); Total Protein 7.5 g/dL (6.4-8.2); Triglycerides 120 mg/dL (<=150)
[2024-08-07 08:09] LABS: Insulin 14.1 uIU/mL (2.6-24.9)
== END 2024-08-06 09:16 | disposition home or self-care (01) ==
LOC: LAB 09:16
PROVIDERS: PCP Family Medicine; Visit Provider Family Medicine
DX: Z00.00 Encounter for general adult medical examination without abnormal findings (principal)
CPT/HCPCS: 36415; 80053; 80061; 83036; 83525; 83540; 84436; 84443; 84481; 85025

== ENCOUNTER 2024-08-15 09:29 | Outpatient (OUT) | payer BC, SELFPAY ==
--- NOTE | 2024-08-15 09:33 | MR_ITS ---
The [address] [address] Patient Name: ACOSTA RAMIREZ MRN: [id number] date: 1975 Sex: F Assigned Patient Location: MRI Current Patient Location: MRI Accession/Order Number: [id number] Exam Date: 08/15/2024 14:47 Report Date: 08/15/2024 14:51 At the request of: ANNA LAIRD MD Procedure: MR head/brain wo con MRI the Brain without contrast TECHNIQUE: Multiplanar T1 and T2-weighted imaging of the brain. HISTORY: Frontal headache for 2 weeks. Migraine. COMPARISON: none VENTRICLES: Unremarkable BRAIN VOLUME: Adequate volume of brain parenchyma identified. BRAIN PARENCHYMAL SIGNAL INTENSITY: Minimal nonspecific foci of increased T2/FLAIR signal intensity in periventricular white matter. May represent early chronic small vessel ischemic changes. May be related to migraines or vasculitis. May be consideration for demyelinating process. BLEED: None MASS EFFECT: No mass effect DIFFUSION RESTRICTION: None GRADIENT ECHO PARENCHYMAL SIGNAL LOSS: None MIDBRAIN: The midbrain structures are unremarkable. ANA: Unremarkable MEDULLA: Unremarkable INTERNAL AUDITORY CANALS: Unremarkable SINUSES: Mucosal thickening of fluid levels of the sinuses. ORBITS: Grossly unremarkable MASTOIDS: Unremarkable ENHANCEMENT: No contrast enhancement given MR/MR head/brain wo con IMPRESSION: No acute intracranial process. Findings suggesting early chronic small vessel ischemic changes. Nonspecific finding. May relate to migraines or vasculitis. May correlate with a demyelinating process. Acute bilateral maxillary sinus disease. Impression dictated by: Lew Tobar M.D.08/15/2024 2:51 PM Dictation Location: [place] [address] Electronically authenticated by: [id number] Y Date: 08/15/2024 14:51
--- OUTSIDE RECORDS SUMMARY | 2024-08-15 09:34 | XMS_ITS | CCD ---
Author Organization [facility] Care Team Providers Care Analytical Technician Name Role Phone SISI ., DR CASTILLO [...] Provider UnavailAnna Padilla MD Primary Care Provider [phone] Jason May MD Emergency Provider [phone] [employer] APRN Emergency Provider [phone] Jason May Admitting Unavailable [facility] Unavailable Jason May Attending Unavailable [employer] Attending Unavailable [employer] Admitting Unavailable [facility] Unavailable Allergies Allergy Classification Reported Allergen(s) Allergy Type Date of Onset Reaction(s) Facility (1 source) Cephalexin Drug Allergy 5 [facility] Repository (2 sources) Ciprofloxacin Drug Allergy 5 [facility] Repository (4 sources) Penicillins Drug allergy (disorder) 5 Anaphylaxis [facility] Repository (5 sources) Ciprofloxacin Drug Allergy 4 Anaphylaxis [facility] (2 sources) Penicillins Drug Intolerance 4 Unknown [facility] (1 source) Ciprofloxacin Drug Allergy 5 [facility] Repository (1 source) Penicillins Drug allergy (disorder) 5 [facility] Repository Medications Current Medications Medication Drug Class(es) [...] gap [Moles/Vol] 9.1 mmol/L Normal 6.0-15.0 [facility] Comment on above: Performed By: #### B MP, CK, HS TROP, CBC #### [facility] [address] [place] [address] [place] Calcium [Mass/Vol] 8.6 mg/dL Normal 8.6-10.3 [facility] Comment on above: Performed By: #### B MP, CK, HS TROP, CBC #### [facility] [address] [place] [id number] [place] Chloride [Moles/Vol] 108 mmol/L High 98-107 [facility] Comment on above: Performed By: #### B MP, CK, HS TROP, CBC #### [facility] [address] [place] [id number] [place] CO2 [Moles/Vol] 24.8 mmol/L Normal 21.0-31.0 The [facility] Comment on above: Performed By: #### B MP, CK, HS TROP, CBC #### [facility] [address] [place] [address] [place] Creatinine [Mass/Vol] 0.64 mg/dL Normal 0.60-1.20 [facility] Comment on above: Performed By: #### B MP, CK, HS TROP, CBC #### [facility] [address] [place] [address] [place] Creatinine Clr Calc Pharmacy 113.09 Normal [facility] Comment on above: Result Comment: PERF ORMED BY: [place] [address] PATHOLOGIST FORM BLOCK MAKER MARGOT MENDEZ M.D. Performed By: #### B MP, CK, HS TROP, CBC #### [place] [address] [place] GFR/1.73 sq M.predicted MDRD (S/P/Bld) [Vol rate/Area] mL/min/{1.73_m2} Normal [facility] Comment on above: Performed By: #### B MP, CK, HS TROP, CBC #### [address] Glucose [Mass/Vol] 88 mg/dL Normal 70-100 [facility] Comment on above: Result Comment: [facility] Glucose Reference Range is dependent on time and content of last meal. Glucose of more than 200 mg/dL in a nonstressed, ambulatory subject supports the diagnosis of Diabetes Mellitus. ADA recommended reference range Performed By: #### B MP, CK, HS TROP, CBC #### [address] Potassium [Moles/Vol] 3.9 mmol/L Normal 3.5-5.1 [facility] Comment on above: Performed By: #### B MP, CK, HS TROP, CBC #### [address] Sodium [Moles/Vol] 138 mmol/L Normal 136-145 [facility] Comment on above: Performed By: #### B MP, CK, HS TROP, CBC #### [place] [address] [place] Urea nitrogen [Mass/Vol] 11 mg/dL Normal 7-25 [facility] Comment on above: Performed By: #### B MP, CK, HS TROP, CBC #### [place] [address] [place] Basophils Auto (Bld) [#/Vol] Ordered By: Jason May on 06-08-2024 Basophils (Bld) [#/Vol] Automated basoph il count 0.0-0.2 [facility] Basophils/100 WBC Auto (Bld) Ordered By: Jason May on 06-08-2024 Basophils/100 WBC (Bld) Automated basoph il % . [facility] Calcium [Mass/volume] in Ser um or PlasmaOrdered By: Jason May on 06-08-2024 Calcium [Mass/Vol] Calcium [Mass/volume] in Serum or Plasma 8.6-10.3 [facility] Carbon dioxide, total [Moles /volume] in Serum or PlasmaOrdered By: Jason May on 06-08-2024 CO2 [Moles/Vol] Carbon dioxide, total [Moles/volume] in Serum or Plasma 21.0-31.0 [facility] Chloride [Moles/volume] in S lelia or PlasmaOrdered By: Jason May on 06-08-2024 Chloride [Moles/Vol] Chloride [Moles/volume] in Serum or Plasma High 98-107 [facility] Complete Blood Count Auto Di ffon 06-08-2024 Basophils (Bld) [#/Vol] 0.0 10*3/uL Normal 0.0-0.2 [facility] Comment on above: Result Comment: PERF ORMED BY: [facility] [address] [place] [address] PATHOLOGIST FORM BLOCK MAKER MARGOT MENDEZ M.D. Performed By: #### B MP, CK, HS TROP, CBC #### [facility] [address] [place] [address] [place] Basophils/100 WBC (Bld) 0.7 % Normal . [facility] Comment on above: Performed By: #### B MP, CK, HS TROP, CBC #### [facility] [address] [place] [address] [place] Eosinophils (Bld) [#/Vol] 0.1 10*3/uL Normal 0.0-0.45 [facility] Comment on above: Performed By: #### B MP, CK, HS TROP, CBC #### [facility] [address] [place] [address] [place] Eosinophils/100 WBC (Bld) 1.8 % Normal . [facility] Comment on above: Performed By: #### B MP, CK, HS TROP, CBC #### [address] Erythrocyte distribution width (RBC) [Ratio] 12.0 % Normal 11.9-15.3 [facility] Comment on above: Performed By: #### B MP, CK, HS TROP, CBC #### [address] Hematocrit (Bld) [Volume fraction] 37.9 % Normal 34.0-46.4 [facility] Comment on above: Performed By: #### B MP, CK, HS TROP, CBC #### [address] Hemoglobin (Bld) [Mass/Vol] 13.0 g/dL Normal 11.8-15.4 [facility] Comment on above: Performed By: #### B MP, CK, HS TROP, CBC #### [address] Lymphocytes (Bld) [#/Vol] 2.1 10*3/uL Normal 1.00-4.8 [facility] Comment on above: Performed By: #### B MP, CK, HS TROP, CBC #### [address] Lymphocytes/100 WBC (Bld) 32.6 % Normal . [facility] Comment on above: Performed By: #### B MP, CK, HS TROP, CBC #### [address] MCH (RBC) [Entitic mass] 32.1 pg Normal 24.7-34.3 [facility] Comment on above: Performed By: #### B MP, CK, HS TROP, CBC #### [address] MCV (RBC) [Entitic vol] 93.7 fL Normal 80-100 T [facility] Comment on above: Performed By: #### B MP, CK, HS TROP, CBC #### [address] [place] [address] [place] Mean Corpuscular HGB Conc 34.3 g/dL Normal 32.0-35.0 [facility] Comment on above: Performed By: #### B MP, CK, HS TROP, CBC #### [address] Monocytes (Bld) [#/Vol] 0.5 10*3/uL Normal 0.0-0.8 [facility] Comment on above: Performed By: #### B MP, CK, HS TROP, CBC #### [place] [address] [place] Monocytes/100 WBC (Bld) 15.22 % Normal 0.00-20.00 [facility] Comment on above: Performed By: #### B MP, CK, HS TROP, CBC #### [address] Monocytes/100 WBC (Bld) 8.4 % Normal . [facility] Comment on above: Performed By: #### B MP, CK, HS TROP, CBC #### [address] Neutrophils (Bld) [#/Vol] 3.7 10*3/uL Normal 1.8-7.7 [facility] Comment on above: Performed By: #### B MP, CK, HS TROP, CBC #### [place] [address] [place] Neutrophils/100 WBC (Bld) 56.5 % Normal . [facility] Comment on above: Performed By: #### B MP, CK, HS TROP, CBC #### [place] [address] [place] NRBC% 0.1 /100{WBC} Normal 0-0.5 [facility] Comment on above: Performed By: #### B MP, CK, HS TROP, CBC #### [address] Platelet mean volume (Bld) [Entitic vol] 8.5 fL Normal 6.3-10.7 [facility] Comment on above: Performed By: #### B MP, CK, HS TROP, CBC #### [facility] [address] Platelets (Bld) [#/Vol] 241 10*3/uL Normal 150-450 [facility] Comment on above: Performed By: #### B MP, CK, HS TROP, CBC #### [facility] [address] RBC (Bld) [#/Vol] 4.05 10*6/uL Normal 3.60-5.00 [facility] Comment on above: Performed By: #### B MP, CK, HS TROP, CBC #### [facility] [address] WBC (Bld) [#/Vol] 6.5 10*3/uL Normal 3.8-11.6 [facility] Comment on above: Performed By: #### B MP, CK, HS TROP, CBC #### [facility] [address] Creatine Kinaseon 06-08-2024 CK [Catalytic activity/Vol] 122 U/L Normal 30-223 [facility] Comment on above: Performed By: #### B MP, CK, HS TROP, CBC #### [address] Creatine kinase [Enzymatic a ctivity/volume] in Serum or PlasmaOrdered By: Jason May on 06-08-2024 CK [Catalytic activity/Vol] Creatine kinase [Enzymatic activity/volume] in Serum or Plasma 30-223 [facility] Creatinine [Mass/volume] in Serum or PlasmaOrdered By: Jason May on 06-08-2024 Creatinine [Mass/Vol] Creatinine [Mass/volume] in Serum or Plasma 0.60-1.20 [facility] ECG 12 lead ECGon 06-08-2024 ECG 12 lead ECG [facility] [place] [address] [place] [address] Electrocardiograph Report Signed Patient: Karyn Carter MR#: [id number] : 1975 Acct:[id number] Age/Sex: 48 / F ADM Date: 06/08/24 Loc: ER Room: Type: [facility] ER Attending Dr: Ordering Provider: Jason [...] By Jason May MD 01/22 Normal [facility] Eosinophils Auto (Bld) [#/Vo l]Ordered By: Jason May on 06-08-2024 Eosinophils (Bld) [#/Vol] Automated eosinophil count 0.0-0.45 [facility] Eosinophils/100 WBC Auto (Bl d)Ordered By: Jason May on 06-08-2024 Eosinophils/100 WBC (Bld) Automated eosinophil % . [facility] Erythrocyte distribution wid th Auto (RBC) [Ratio]Ordered By: Jason May on 06-08-2024 Erythrocyte distribution width (RBC) [Ratio] Erythrocyte distribution width [Ratio] by Automated count 11.9-15.3 [facility] Glucose [Mass/volume] in Ser um or PlasmaOrdered By: Jason May on 06-08-2024 Glucose [Mass/Vol] Glucose [Mass/volume] in Serum or Plasma 70-100 [facility] Comment on above: ADA recommended refe rence rangeRandom Glucose Reference Range is dependent on time and content of last meal. Glucose of more than 200 mg/dL in a nonstressed, ambulatory subject supports the diagnosis of Diabetes Mellitus. Hematocrit Auto (Bld) [Volum e fraction]Ordered By: Jason May on 06-08-2024 Hematocrit (Bld) [Volume fraction] Hematocrit [Volume Fraction] of Blood by Automated count 34.0-46.4 [facility] Hemoglobin [Mass/volume] in BloodOrdered By: Jason May on 06-08-2024 Hemoglobin (Bld) [Mass/Vol] Hemoglobin [Mass/volume] in Blood 11.8-15.4 [facility] Leukocytes [#/volume] correc franklin for nucleated erythrocytes in Blood by Automated counOrdered By: Jason May on 06-08-2024 WBC corrected for nucl RBC Auto (Bld) [#/Vol] Leukocytes [#/volume] corrected for nucleated erythrocytes in Blood by Automated coun 3.8-11.6 [facility] Lymphocytes Auto (Bld) [#/Vo l]Ordered By: Jason May on 06-08-2024 Lymphocytes (Bld) [#/Vol] Lymphocytes [#/volume] in Blood by Automated count 1.00-4.8 [facility] Lymphocytes/100 WBC Auto (Bl d)Ordered By: Jason May on 06-08-2024 Lymphocytes/100 WBC (Bld) Lymphocytes/100 leukocytes in Blood by Automated count . [facility] MCH Auto (RBC) [Entitic mass ]Ordered By: Jason May on 06-08-2024 MCH (RBC) [Entitic mass] MCH [Entitic ma ss] by Automated count 24.7-34.3 [facility] MCHC Auto (RBC) [Mass/Vol]Or dered By: Jason May on 06-08-2024 MCHC (RBC) [Mass/Vol] MCHC [Mass/volume] by Automated count 32.0-35.0 [facility] MCV Auto (RBC) [Entitic vol] Ordered By: Jason May on 06-08-2024 MCV (RBC) [Entitic vol] MCV [Entitic volume] by Automated count 80-100 [facility] Monocyte distribution width [Entitic volume] in Blood by AutomatedOrdered By: Jason May on 06-08-2024 Monocyte distribution width Auto (Bld) [Entitic vol] Monocyte distribution width [Entitic volume] in Blood by Automated 0.00-20.00 [facility] Monocytes Auto (Bld) [#/Vol] Ordered By: Jason May on 06-08-2024 Monocytes (Bld) [#/Vol] Automated blood monocyte count 0.0-0.8 [facility] Monocytes/100 WBC Auto (Bld) Ordered By: Jason May on 06-08-2024 Monocytes/100 WBC (Bld) Automated monocy te % . [facility] Neutrophils Auto (Bld) [#/Vo l]Ordered By: Jason May on 06-08-2024 Neutrophils (Bld) [#/Vol] Neutrophils [#/volume] in Blood by Automated count 1.8-7.7 [facility] Neutrophils/100 WBC Auto (Bl d)Ordered By: Jason May on 06-08-2024 Neutrophils/100 WBC (Bld) Automated neutrophil % . [facility] No Panel InformationOrdered By: Jason May on 06-08-2024 Estimated GFR (CKD-EPI) > 60.0 mL/Min [facility] Creatinine Clearance (Chem 113.09 [facility] Nucleated erythrocytes [Pres ence] in Blood by Automated countOrdered By: Jason May on 06-08-2024 Nucleated RBC Auto Ql (Bld) Nucleated erythrocytes [Presence] in Blood by Automated count 0-0.5 [facility] Platelet mean volume Auto (B ld) [Entitic vol]Ordered By: Jason May on 06-08-2024 Platelet mean volume (Bld) [Entitic vol] Platelet mean volume [Entitic volume] in Blood by Automated count 6.3-10.7 [facility] Platelets Auto (Bld) [#/Vol] Ordered By: Jason May on 06-08-2024 Platelets (Bld) [#/Vol] Platelets [#/volume] in Blood by Automated count 150-450 [facility] Potassium [Moles/volume] in Serum or PlasmaOrdered By: Jason May on 06-08-2024 Potassium [Moles/Vol] Potassium [Moles/volume] in Serum or Plasma 3.5-5.1 [facility] RBC Auto (Bld) [#/Vol]Ordere d By: Jason May on 06-08-2024 RBC (Bld) [#/Vol] Erythrocytes [#/volume] in Blood by Automated count 3.60-5.00 [facility] Serum or plasma anion gap de terminationOrdered By: Jason May on 06-08-2024 Anion gap [Moles/Vol] Serum or plasma anion gap determination 6.0-15.0 [facility] Sodium [Moles/volume] in Ser um or PlasmaOrdered By: Jason May on 06-08-2024 Sodium [Moles/Vol] Sodium [Moles/volume] in Serum or Plasma 136-145 [facility] Troponin I High Sensitivityo n 06-08-2024 Troponin I High Sensitivity 3 Normal 0-15 [facility] Comment on above: Result Comment: The Troponin units of report have been changed to meet the Chest Pain Accreditation requirement, element EC5.M1l2. Troponin units are changed from pg/ml to ng/L. Also, the decimal is removed and results are in whole numbers. PERFORMED BY: [place] [address] PATHOLOGIST FORM BLOCK MAKER MARGOT MENDEZ M.D. Performed By: #### B MP, CK, HS TROP, CBC #### [address] Troponin I.cardiac [Mass/vol ume] in Serum or Plasma by Detection limit <= 0.01 ng/Ordered By: Jason May on 06-08-2024 Troponin I.cardiac DL <= 0.01 ng/mL [Mass/Vol] Troponin I.cardiac [Mass/volume] in Serum or Plasma by Detection limit <= 0.01 ng/ 0-15 [facility] Comment on above: The Troponin units o f report have been changed to meet the Chest Pain Accreditation requirement, element EC5.M1l2. Troponin units are changed from pg/ml to ng/L. Also, the decimal is removed and results are in whole numbers. Urea nitrogen [Mass/volume] in Serum or PlasmaOrdered By: Jason May on 06-08-2024 Urea nitrogen [Mass/Vol] Urea nitrogen [Mass/volume] in Serum or Plasma 7-25 [facility] WBC Auto (Bld) [#/Vol]Ordere d By: Jason May on 06-08-2024 WBC (Bld) [#/Vol] Leukocytes [#/volume] in Blood by Automated count 3.8-11.6 [facility] X-ray reportOrdered By: Jaison Eaton on 06-08-2024 Study report [facility] [address] [place] [address] XRay Report Signed Patient: Karyn Carter MR#: [id number] : 1975 Acct:[id number] Age/Sex: 48 / F ADM Date: 5 Loc: ER Room: Type: [facility] ER Attending Dr: Copies to: Jason May [...] Jaison Eaton M.D.06/08/2024 11:51 AM Dictation Location: [facility]- Transcribed By: [facility] 06/08/24 1151 Dictated By: Jaison Eaton II, MD 06/08/24 1142 Signed By: 06/08/24 1151 [facility] Work Phone: XR chest 2V*on 06-08-2024 XR chest 2V* [facility] [address] [address] XRay Report Signed Patient: Karyn Carter MR#: [id number] : 1975 Acct:[id number] Age/Sex: 48 / F ADM Date: 06/08/24 Loc: ER Room: Type: [facility] ER Attending Dr: Copies to: Jason May [...] Jaison Eaton M.D.06/08/2024 11:51 AM Dictation Location: [place] [address] Transcribed By: [facility] 06/08/24 1151 Dictated By: Jaison Eaton II, MD 06/08/24 1142 Signed By: 06/08/24 1151 Normal [facility] CAROLA by IFAon 06-15-2022 Antinuclear Antibodies, IFA Negative Normal [facility] Comment on above: Result Comment: Nega tive <1:80 Borderline 1:80 Positive >1:80 ICAP nomenclature: AC-0 For more information about Hep-2 cell patterns use ANApatterns.org, the official website for the International Consensus on Antinuclear Antibody (CAROLA) Patterns (ICAP). Performed By: #### A NAIFA #### [facility] [address] [place] [address] Dr. Ryann Beasley INSULINon 06-12-2022 Insulin 8.8 uIU/mL Normal 2.6-24.9 [facility] Comment on above: Performed By: #### I NSULIN #### [facility] [address] [place] [address] [address] Ryann Beasley ANTISTREPTOLYSIN O AB (ASO)o n 06-11-2022 Antistreptolysin O Ab 70.8 IU/mL Normal 0.0-200.0 [facility] Comment on above: Performed By: #### U SELMA, CRP, TSH, CMP, T7 #### [facility] [address] [place] [address] [address] Ryann Beasley RHEUMATOID FACTORon 06-11-19 23 RA Latex Turbid. 11.2 IU/mL Normal <14.0 [facility] Comment on above: Performed By: #### U SELMA, CRP, TSH, CMP, T7 #### [facility] [address] [place] [address] Dr. Ryann Beasley CBC AUTO DIFFon 06-10-2022 BASO # 0.1 103/ul Normal 0.0-0.1 [facility] Comment on above: Performed By: #### U SELMA, CRP, TSH, CMP, T7 #### [facility] [address] [place] [address] Dr. Ryann Beasley Basophils/100 WBC (Bld) 0.7 % Normal 0.2-2.0 [facility] Comment on above: Performed By: #### U SELMA, CRP, TSH, CMP, T7 #### [facility] [address] [place] [address] Dr. Ryann Beasley EO # 0.1 103/ul Normal 0.0-0.7 [facility] Comment on above: Performed By: #### U SELMA, CRP, TSH, CMP, T7 #### [facility] [address] [place] [address] Dr. Ryann Beasley Eosinophils/100 WBC (Bld) 1.9 % Normal 0.9-7.0 [facility] Comment on above: Performed By: #### U SELMA, CRP, TSH, CMP, T7 #### [facility] [address] [place] [address] Dr. Ryann Beasley Erythrocyte distribution width (RBC) [Ratio] 11.4 % Normal 11.0-15.0 [facility] Comment on above: Performed By: #### U SELMA, CRP, TSH, CMP, T7 #### [facility] [address] [place] [address] Dr. Ryann Beasley Hematocrit (Bld) [Volume fraction] 41.1 % Normal 36.0-48.0 [facility] Comment on above: Performed By: #### U SELMA, CRP, TSH, CMP, T7 #### [facility] [address] [place] [address] Dr. Ryann Beasley Hemoglobin (Bld) [Mass/Vol] 13.8 g/dL Normal 12.0-16.0 [facility] Comment on above: Performed By: #### U SELMA, CRP, TSH, CMP, T7 #### [facility] [address] [place] [address] Dr. Ryann Beasley IG # 0.03 10e3/ul Normal 0.00-0.03 [facility] Comment on above: Performed By: #### U SELMA, CRP, TSH, CMP, T7 #### [facility] [address] [place] [address] Dr. Ryann Beasley IG % 0.4 % Normal 0.0-0.5 [facility] Comment on above: Performed By: #### U SELMA, CRP, TSH, CMP, T7 #### [facility] [address] [place] [address] Dr. Ryann Beasley LYMPH # 2.2 103/ul Normal 1.2-3.8 [facility] Comment on above: Performed By: #### U SELMA, CRP, TSH, CMP, T7 #### [facility] [address] [place] [address] Dr. Ryann Beasley Lymphocytes/100 WBC (Bld) 31.8 % Normal 20.5-60.0 [facility] Comment on above: Performed By: #### U SELMA, CRP, TSH, CMP, T7 #### [facility] [address] [place] [address] Dr. Ryann Beasley MANUAL DIFF REQ NO Normal [facility] Comment on above: Performed By: #### U SELMA, CRP, TSH, CMP, T7 #### [facility] [address] [place] [address] Dr. Ryann Beasley MCH (RBC) [Entitic mass] 31.1 pg Normal 26.7-34.0 [facility] Comment on above: Performed By: #### U SELMA, CRP, TSH, CMP, T7 #### [facility] [address] [place] [address] Dr. Ryann Beasley MCHC (RBC) [Mass/Vol] 33.6 g/dL Normal 29.9-35.2 [facility] Comment on above: Performed By: #### U SELMA, CRP, TSH, CMP, T7 #### [facility] [address] [place] [address] Dr. Ryann Beasley MCV (RBC) [Entitic vol] 92.6 fL Normal 81.0-99.0 [facility] Comment on above: Performed By: #### U SELMA, CRP, TSH, CMP, T7 #### [facility] [address] [place] [address] [address] Ryann Beasley MONO # 0.5 103/ul Normal 0.3-0.8 [facility] Comment on above: Performed By: #### U SELMA, CRP, TSH, CMP, T7 #### [facility] [address] [place] [address] Dr. Ryann Beasley Monocytes/100 WBC (Bld) 7.1 % Normal 1.7-12.0 [facility] Comment on above: Performed By: #### U SELMA, CRP, TSH, CMP, T7 #### [facility] [address] [place] [address] Dr. Ryann Beasley NEUT # 4.0 103/ul Normal 1.4-6.5 [facility] Comment on above: Performed By: #### U SELMA, CRP, TSH, CMP, T7 #### [facility] [address] [place] [address] Dr. Ryann Beasley Neutrophils/100 WBC (Bld) 58.1 % Normal 43.0-75.0 [facility] Comment on above: Performed By: #### U SELMA, CRP, TSH, CMP, T7 #### [facility] [address] [place] [address] Dr. Ryann Beasley Platelet mean volume (Bld) [Entitic vol] 9.8 fL Normal 9.5-13.5 [facility] Comment on above: Performed By: #### U SELMA, CRP, TSH, CMP, T7 #### [facility] [address] [place] [address] Dr. Ryann Beasley PLT 273 103/ul Normal 150-450 [facility] Comment on above: Performed By: #### U SELMA, CRP, TSH, CMP, T7 #### [facility] [address] [place] [address] Dr. Ryann Beasley RBC 4.44 106/ul Normal 4.20-5.40 [facility] Comment on above: Performed By: #### U SELMA, CRP, TSH, CMP, T7 #### [facility] [address] [place] [address] Dr. Ryann Beasley WBC 7.0 103/ul Normal 4.0-11.0 [facility] Comment on above: Performed By: #### U SELMA, CRP, TSH, CMP, T7 #### [facility] [address] [address] [address] Ryann Beasley CRPon 06-10-2022 CRP [Mass/Vol] mg/L Normal <=1.0 [facility] Comment on above: Performed By: #### U SELMA, CRP, TSH, CMP, T7 #### [facility] [address] [address] [address] Ryann Beasley FREE THYROXINE INDEX T7on FTI 2.87 Normal 1.30-4.50 [facility] Comment on above: Performed By: #### U SELMA, CRP, TSH, CMP, T7 #### [facility] [address] [place] [address] Dr. Ryann Beasley T3U 35.0 % Normal 30.0-39.0 [facility] Comment on above: Performed By: #### U SELMA, CRP, TSH, CMP, T7 #### [facility] [address] [address] [address] Ryann Beasley T4 [Mass/Vol] 8.20 ug/dL Normal 4.80-13.90 [facility] Comment on above: Performed By: #### U SELMA, CRP, TSH, CMP, T7 #### [facility] [address] [place] [address] Dr. Ryann Beasley GLYCOHEMOGLOBIN A1Con 2022 ADA RECOMMENDATION SEE BELOW Normal [facility] Comment on above: Result Comment: ADA RECOMMENDED LIMIT 4.0 - 6.0 ADA THERAPEUTIC TARGET < 7.0 ACTION SUGGESTED > 7.0 Performed By: #### U SELMA, CRP, TSH, CMP, T7 #### [facility] [address] [place] [address] Dr. Ryann Beasley Glucose [Mass/Vol] 108 mg/dL Normal [facility] Comment on above: Performed By: #### U SELMA, CRP, TSH, CMP, T7 #### [facility] [address] [place] [address] Dr. Ryann Beasley HbA1c (Bld) [Mass fraction] 5.4 % Normal 4.5-6.2 [facility] Comment on above: Performed By: #### U SELMA, CRP, TSH, CMP, T7 #### [facility] [address] [address] [address] Ryann Beasley PROF 14(COMP METB)on 023 Albumin [Mass/Vol] 3.8 g/dL Normal 3.4-5.0 [facility] Comment on above: Performed By: #### U SELMA, CRP, TSH, CMP, T7 #### [facility] [address] [address] [address] Ryann Beasley Albumin/Globulin [Mass ratio] 1.2 {ratio} Normal [facility] Comment on above: Performed By: #### U SELMA, CRP, TSH, CMP, T7 #### [facility] [address] [address] [address] Ryann Beasley ALP [Catalytic activity/Vol] 49 U/L Normal 46-116 [facility] Comment on above: Performed By: #### U SELMA, CRP, TSH, CMP, T7 #### [facility] [address] [address] [address] Ryann Beasley ALT [Catalytic activity/Vol] 24 U/L Normal 14-59 [facility] Comment on above: Performed By: #### U SELMA, CRP, TSH, CMP, T7 #### [facility] [address] [address] [address] Ryann Beasley Anion gap [Moles/Vol] 14.3 mmol/L Normal [facility] Comment on above: Performed By: #### U SELMA, CRP, TSH, CMP, T7 #### [facility] [address] [address] [address] Ryann Beasley AST [Catalytic activity/Vol] 22 U/L Normal 15-37 [facility] Comment on above: Performed By: #### U SELMA, CRP, TSH, CMP, T7 #### [facility] [address] [address] [address] Ryann Beasley Bilirubin [Mass/Vol] 0.5 mg/dL Normal 0.2-1.0 [facility] Comment on above: Performed By: #### U SELMA, CRP, TSH, CMP, T7 #### [facility] [address] [address] [address] Ryann Beasley Calcium [Mass/Vol] 9.2 mg/dL Normal 8.5-10.1 [facility] Comment on above: Performed By: #### U SELMA, CRP, TSH, CMP, T7 #### [facility] [address] [address] [address] Ryann Beasley Chloride [Moles/Vol] 104 mmol/L Normal 98-107 [facility] Comment on above: Performed By: #### U SELMA, CRP, TSH, CMP, T7 #### [facility] [address] [place] [address] Dr. Ryann Beasley CO2 [Moles/Vol] 27.5 mmol/L Normal 21.0-32.0 [facility] Comment on above: Performed By: #### U SELMA, CRP, TSH, CMP, T7 #### [facility] [address] [place] [address] Dr. Ryann Beasley Creatinine [Mass/Vol] 0.63 mg/dL Normal 0.55-1.02 [facility] Comment on above: Performed By: #### U SELMA, CRP, TSH, CMP, T7 #### [facility] [address] [place] [address] Dr. Ryann Beasley EGFR-AF IVORIAN >60 Normal >=60 [facility] Comment on above: Performed By: #### U SELMA, CRP, TSH, CMP, T7 #### [facility] [address] [place] [address] Dr. Ryann Beasley EGFR-NON AF IVORIAN >60 Normal >=60 [facility] Comment on above: Performed By: #### U SELMA, CRP, TSH, CMP, T7 #### [facility] [address] [place] [address] Dr. Ryann Beasley Globulin (S) [Mass/Vol] 3.3 g/dL Normal [facility] Comment on above: Performed By: #### U SELMA, CRP, TSH, CMP, T7 #### [facility] [address] [address] [address] Ryann Beasley Glucose [Mass/Vol] 107 mg/dL Critically high 74-106 [facility] Comment on above: Performed By: #### U SELMA, CRP, TSH, CMP, T7 #### [facility] [address] [place] [address] Dr. Ryann Beasley Potassium [Moles/Vol] 3.8 mmol/L Normal 3.5-5.1 [facility] Comment on above: Performed By: #### U SELMA, CRP, TSH, CMP, T7 #### [facility] [address] [address] [address] Ryann Beasley Protein [Mass/Vol] 7.1 g/dL Normal 6.4-8.2 [facility] Comment on above: Performed By: #### U SELMA, CRP, TSH, CMP, T7 #### [facility] [address] [address] [address] Ryann Beasley Sodium [Moles/Vol] 142 mmol/L Normal 136-145 [facility] Comment on above: Performed By: #### U SELMA, CRP, TSH, CMP, T7 #### [facility] [address] [address] [address] Ryann Beasley Urea nitrogen [Mass/Vol] 12.0 mg/dL Normal 7.0-18.0 [facility] Comment on above: Performed By: #### U SELMA, CRP, TSH, CMP, T7 #### [facility] [address] [place] [address] Dr. Ryann Beasley Urea nitrogen/Creatinine [Mass ratio] 19.0 mg/mg Normal [facility] Comment on above: Performed By: #### U SELMA, CRP, TSH, CMP, T7 #### [facility] [address] [place] [address] Dr. Ryann Beasley TSHon 06-10-2022 TSH 3.122 uIU/mL Normal 0.358-3.740 [facility] Comment on above: Performed By: #### U SELMA, CRP, TSH, CMP, T7 #### [facility] [address] [address] [address] Ryann Beasley URIC ACID SERUMon 06-10-2022 Urate [Mass/Vol] 4.3 mg/dL Normal 2.6-6.0 [facility] Comment on above: Performed By: #### U SELMA, CRP, TSH, CMP, T7 #### [facility] [address] [address] [address] Ryann Beasley INSULINon 01-26-2022 Insulin 9.7 uIU/mL Normal 2.6-24.9 [facility] Comment on above: Performed By: #### I NSULIN #### [facility] [address] [place] [address] Dr. Ryann Beasley T4, T3U, FTI [facility] 01-26 Free Thyroxine Index 4.6 Normal 1.2-4.9 [facility] Comment on above: Performed By: #### U SELMA, CRP, TSH, CMP, T7 #### [facility] [address] [address] [address] Ryann Beasley T3 Uptake 44 % Critically high 24-39 [facility] Comment on above: Performed By: #### U SELMA, CRP, TSH, CMP, T7 #### [facility] [address] [address] [address] Ryann Beasley T4 [Mass/Vol] 10.5 ug/dL Normal 4.5-12.0 [facility] Comment on above: Performed By: #### U SELMA, CRP, TSH, CMP, T7 #### [facility] [address] [place] [address] Dr. Ryann Beasley CBC AUTO DIFFon 01-25-2022 BASO # 0.1 103/ul Normal 0.0-0.1 [facility] Comment on above: Performed By: #### U SELMA, CRP, TSH, CMP, T7 #### [facility] [address] [place] [address] Dr. Ryann Beasley Basophils/100 WBC (Bld) 0.6 % Normal 0.2-2.0 [facility] Comment on above: Performed By: #### U SELMA, CRP, TSH, CMP, T7 #### [facility] [address] [address] [address] Ryann Beasley EO # 0.2 103/ul Normal 0.0-0.7 [facility] Comment on above: Performed By: #### U SELMA, CRP, TSH, CMP, T7 #### [facility] [address] [address] [address] Ryann Beasley Eosinophils/100 WBC (Bld) 1.8 % Normal 0.9-7.0 [facility] Comment on above: Performed By: #### U SELMA, CRP, TSH, CMP, T7 #### [facility] [address] [place] [address] Dr. Ryann Beasley Erythrocyte distribution width (RBC) [Ratio] 11.6 % Normal 11.0-15.0 [facility] Comment on above: Performed By: #### U SELMA, CRP, TSH, CMP, T7 #### [facility] [address] [place] [address] Dr. Ryann Beasley Hematocrit (Bld) [Volume fraction] 42.0 % Normal 36.0-48.0 [facility] Comment on above: Performed By: #### U SELMA, CRP, TSH, CMP, T7 #### [facility] [address] [place] [address] Dr. Ryann Beasley Hemoglobin (Bld) [Mass/Vol] 14.0 g/dL Normal 12.0-16.0 [facility] Comment on above: Performed By: #### U SELMA, CRP, TSH, CMP, T7 #### [facility] [address] [place] [address] Dr. Ryann Beasley IG # 0.04 10e3/ul Critically high 0.00-0.03 [facility] Comment on above: Performed By: #### U SELMA, CRP, TSH, CMP, T7 #### [facility] [address] [place] [address] Dr. Ryann Beasley IG % 0.5 % Normal 0.0-0.5 [facility] Comment on above: Performed By: #### U SELMA, CRP, TSH, CMP, T7 #### [facility] [address] [place] [address] Dr. Ryann Beasley LYMPH # 2.3 103/ul Normal 1.2-3.8 [facility] Comment on above: Performed By: #### U SELMA, CRP, TSH, CMP, T7 #### [facility] [address] [place] [address] Dr. Ryann Beasley Lymphocytes/100 WBC (Bld) 27.0 % Normal 20.5-60.0 [facility] Comment on above: Performed By: #### U SELMA, CRP, TSH, CMP, T7 #### [facility] [address] [place] [address] Dr. Ryann Beasley MANUAL DIFF REQ NO Normal [facility] Comment on above: Performed By: #### U SELMA, CRP, TSH, CMP, T7 #### [facility] [address] [place] [address] Dr. Ryann Beasley MCH (RBC) [Entitic mass] 32.0 pg Normal 26.7-34.0 [facility] Comment on above: Performed By: #### U SELMA, CRP, TSH, CMP, T7 #### [facility] [address] [place] [address] Dr. Ryann Beasley MCHC (RBC) [Mass/Vol] 33.3 g/dL Normal 29.9-35.2 [facility] Comment on above: Performed By: #### U SELMA, CRP, TSH, CMP, T7 #### [facility] [address] [place] [address] Dr. Ryann Beasley MCV (RBC) [Entitic vol] 95.9 fL Normal 81.0-99.0 [facility] Comment on above: Performed By: #### U SELMA, CRP, TSH, CMP, T7 #### [facility] [address] [place] [address] Dr. Ryann Beasley MONO # 0.7 103/ul Normal 0.3-0.8 [facility] Comment on above: Performed By: #### U SELMA, CRP, TSH, CMP, T7 #### [facility] [address] [place] [address] Dr. Ryann Beasley Monocytes/100 WBC (Bld) 7.8 % Normal 1.7-12.0 [facility] Comment on above: Performed By: #### U SELMA, CRP, TSH, CMP, T7 #### [facility] [address] [address] [address] Ryann Beasley NEUT # 5.2 103/ul Normal 1.4-6.5 [facility] Comment on above: Performed By: #### U SELMA, CRP, TSH, CMP, T7 #### [facility] [address] [place] [address] Dr. Ryann Beasley Neutrophils/100 WBC (Bld) 62.3 % Normal 43.0-75.0 [facility] Comment on above: Performed By: #### U SELMA, CRP, TSH, CMP, T7 #### [facility] [address] [place] [address] Dr. Ryann Beasley Platelet mean volume (Bld) [Entitic vol] 10.0 fL Normal 9.5-13.5 [facility] Comment on above: Performed By: #### U SELMA, CRP, TSH, CMP, T7 #### [facility] [address] [place] [address] Dr. Ryann Beasley PLT 231 103/ul Normal 150-450 [facility] Comment on above: Performed By: #### U SELMA, CRP, TSH, CMP, T7 #### [facility] [address] [place] [address] Dr. Ryann Beasley RBC 4.38 106/ul Normal 4.20-5.40 [facility] Comment on above: Performed By: #### U SELMA, CRP, TSH, CMP, T7 #### [facility] [address] [place] [address] Dr. Ryann Beasley WBC 8.3 103/ul Normal 4.0-11.0 [facility] Comment on above: Performed By: #### U SELMA, CRP, TSH, CMP, T7 #### [facility] [address] [place] [address] Dr. Ryann Beasley GLYCOHEMOGLOBIN A1Con 2021 ADA RECOMMENDATION SEE BELOW Normal [facility] Comment on above: Result Comment: ADA RECOMMENDED LIMIT 4.0 - 6.0 ADA THERAPEUTIC TARGET < 7.0 ACTION SUGGESTED > 7.0 Performed By: #### A 1C #### [facility] [address] [address] [address] Ryann Beasley Glucose [Mass/Vol] 100 mg/dL Normal [facility] Comment on above: Performed By: #### A 1C #### [facility] [address] [address] [address] Ryann Beasley HbA1c (Bld) [Mass fraction] 5.1 % Normal 4.5-6.2 [facility] Comment on above: Performed By: #### A 1C #### [facility] [address] [address] [address] Ryann Beasley IRONon 01-25-2022 Iron [Mass/Vol] 64.0 ug/dL Normal 50.0-170.0 [facility] Comment on above: Performed By: #### U SELMA, CRP, TSH, CMP, T7 #### [facility] [address] [address] [address] Ryann Beasley LIPID PROFILEon 01-25-2022 CHOL-HDL RATIO NORM SEE BELOW Normal [facility] Comment on above: Result Comment: 3.3 - 4.4 LOW RISK 4.4 - 7.1 AVERAGE RISK 7.1 - 11.0 MODERATE RISK >11.0 HIGH RISK Performed By: #### U SELMA, CRP, TSH, CMP, T7 #### [facility] [address] [address] [address] Ryann Beasley Cholesterol [Mass/Vol] 201 mg/dL Critically high <=200 [facility] Comment on above: Performed By: #### U SELMA, CRP, TSH, CMP, T7 #### [facility] [address] [address] [address] Ryann Beasley Cholesterol in HDL [Mass/Vol] 54 mg/dL Normal 40-60 [facility] Comment on above: Performed By: #### U SELMA, CRP, TSH, CMP, T7 #### [facility] [address] [address] [address] Ryann Beasley Cholesterol in LDL [Mass/Vol] 129.4 mg/dL Normal [facility] Comment on above: Performed By: #### U SELMA, CRP, TSH, CMP, T7 #### [facility] [address] [address] [address] Ryann Beasley Cholesterol.total/Choles terol in HDL [Mass ratio] 3.7 {ratio} Normal [facility] Comment on above: Performed By: #### U SELMA, CRP, TSH, CMP, T7 #### [facility] [address] [address] [address] Ryann Beasley HDL NORMAL > or = 60 mg/dl - LOW CARDIOVASCULAR RISK <40 mg/dl - HIGH CARDIOVASCULAR RISK Normal [facility] Comment on above: Performed By: #### U SELMA, CRP, TSH, CMP, T7 #### [facility] [address] [address] [address] Ryann Beasley LDL CALC NORMAL SEE BELOW Normal [facility] Comment on above: Result Comment: <100 mg/dl OPTIMAL 100 - 129 mg/dl NEAR OR ABOVE OPTIMAL 130 - 159 mg/dl BORDERLINE HIGH 160 - 189 mg/dl HIGH >190 mg/dl VERY HIGH Performed By: #### U SELMA, CRP, TSH, CMP, T7 #### [facility] [address] [address] [address] Ryann Beasley Triglyceride [Mass/Vol] 88 mg/dL Normal <=150 [facility] Comment on above: Performed By: #### U SELMA, CRP, TSH, CMP, T7 #### [facility] [address] [address] [address] Ryann Beasley VLDL CALC 17.6 mg/dL Normal [facility] Comment on above: Performed By: #### U SELMA, CRP, TSH, CMP, T7 #### [facility] [address] [address] [address] Ryann Beasley PROF 14(COMP METB)on 022 Albumin [Mass/Vol] 4.1 g/dL Normal 3.4-5.0 [facility] Comment on above: Performed By: #### U SELMA, CRP, TSH, CMP, T7 #### [facility] [address] [address] [address] Ryann Beasley Albumin/Globulin [Mass ratio] 1.3 {ratio} Normal [facility] Comment on above: Performed By: #### U SELMA, CRP, TSH, CMP, T7 #### [facility] [address] [address] [address] Ryann Beasley ALP [Catalytic activity/Vol] 46 U/L Normal 46-116 [facility] Comment on above: Performed By: #### U SELMA, CRP, TSH, CMP, T7 #### [facility] [address] [address] [address] Ryann Beasley ALT [Catalytic activity/Vol] 21 U/L Normal 14-59 [facility] Comment on above: Performed By: #### U SELMA, CRP, TSH, CMP, T7 #### [facility] [address] [address] [address] Ryann Beasley Anion gap [Moles/Vol] 13.2 mmol/L Normal [facility] Comment on above: Performed By: #### U SELMA, CRP, TSH, CMP, T7 #### [facility] [address] [place] [address] Dr. Ryann Beasley AST [Catalytic activity/Vol] 8 U/L Critically low 15-37 [facility] Comment on above: Performed By: #### U SELMA, CRP, TSH, CMP, T7 #### [facility] [address] [address] [address] Ryann Beasley Bilirubin [Mass/Vol] 0.3 mg/dL Normal 0.2-1.0 [facility] Comment on above: Performed By: #### U SELMA, CRP, TSH, CMP, T7 #### [facility] [address] [place] [address] Dr. Ryann Beasley Calcium [Mass/Vol] 9.3 mg/dL Normal 8.5-10.1 [facility] Comment on above: Performed By: #### U SELMA, CRP, TSH, CMP, T7 #### [facility] [address] [address] [address] Ryann Beasley Chloride [Moles/Vol] 104 mmol/L Normal 98-107 [facility] Comment on above: Performed By: #### U SELMA, CRP, TSH, CMP, T7 #### [facility] [address] [address] [address] Ryann Beasley CO2 [Moles/Vol] 26.8 mmol/L Normal 21.0-32.0 [facility] Comment on above: Performed By: #### U SELMA, CRP, TSH, CMP, T7 #### [facility] [address] [address] [address] Ryann Beasley Creatinine [Mass/Vol] 0.64 mg/dL Normal 0.55-1.02 [facility] Comment on above: Performed By: #### U SELMA, CRP, TSH, CMP, T7 #### [facility] [address] [address] [address] Ryann Beasley EGFR-AF IVORIAN >60 Normal >=60 [facility] Comment on above: Performed By: #### U SELMA, CRP, TSH, CMP, T7 #### [facility] [address] [address] [address] Ryann Beasley EGFR-NON AF IVORIAN >60 Normal >=60 [facility] Comment on above: Performed By: #### U SELMA, CRP, TSH, CMP, T7 #### [facility] [address] [address] [address] Ryann Beasley Globulin (S) [Mass/Vol] 3.1 g/dL Normal [facility] Comment on above: Performed By: #### U SELMA, CRP, TSH, CMP, T7 #### [facility] [address] [address] [address] Ryann Beasley Glucose [Mass/Vol] 103 mg/dL Normal 74-106 [facility] Comment on above: Performed By: #### U SELMA, CRP, TSH, CMP, T7 #### [facility] [address] [address] [address] Ryann Beasley Potassium [Moles/Vol] 4.0 mmol/L Normal 3.5-5.1 [facility] Comment on above: Performed By: #### U SELMA, CRP, TSH, CMP, T7 #### [facility] [address] [address] [address] Ryann Beasley Protein [Mass/Vol] 7.2 g/dL Normal 6.4-8.2 [facility] Comment on above: Performed By: #### U SELMA, CRP, TSH, CMP, T7 #### [facility] [address] [place] [address] Dr. Ryann Beasley Sodium [Moles/Vol] 140 mmol/L Normal 136-145 [facility] Comment on above: Performed By: #### U SELMA, CRP, TSH, CMP, T7 #### [facility] [address] [place] [address] Dr. Ryann Beasley Urea nitrogen [Mass/Vol] 16.0 mg/dL Normal 7.0-18.0 [facility] Comment on above: Performed By: #### U SELMA, CRP, TSH, CMP, T7 #### [facility] [address] [place] [address] Dr. Ryann Beasley Urea nitrogen/Creatinine [Mass ratio] 25.0 mg/mg Normal [facility] Comment on above: Performed By: #### U SELMA, CRP, TSH, CMP, T7 #### [facility] [address] [place] [address] Dr. Ryann Beasley TSHon 01-25-2022 TSH 2.706 uIU/mL Normal 0.358-3.740 [facility] Comment on above: Performed By: #### L IPID, CMP, TSH #### [facility] [address] [place] [address] Dr. Ryann Beasley Vital Signs Date Time Vital Sign Value Performing Clinician Facility 06-20-2024 14:17-0500 Body temperature 97.9 [degF] Anna Hill MD Work Phone: [facility] 06-20-2024 14:17-0500 Diastolic blood pressure 94 mm[Hg] Anna Hill MD Work Phone: [facility] 06-20-2024 14:17-0500 Heart rate 95 /min Anna Hill MD Work Phone: [facility] 06-20-2024 14:17-0500 Respiratory rate 18 /min Anna Hill MD Work Phone: [facility] 06-20-2024 14:17-0500 SaO2% (BldA) [Mass fraction] 97 % Anna Hill MD Work Phone: [facility] 06-20-2024 14:17-0500 Systolic blood pressure 137 mm[Hg] Anna Hill MD Work Phone: [facility] 06-20-2024 14:14-0500 Body height 157.48 cm Anna Hill MD Work Phone: [facility] 06-20-2024 14:14-0500 Body weight 80 kg Anna Hill MD Work Phone: [facility] 06-08-2024 12:22-0500 Diastolic blood pressure 60 mm[Hg] Anna Hill MD Work Phone: [facility] 06-08-2024 12:22-0500 Heart rate 80 /min Anna Hill MD Work Phone: [facility] 06-08-2024 12:22-0500 Respiratory rate 18 /min Anna Hill MD Work Phone: [facility] 06-08-2024 12:22-0500 SaO2% (BldA) [Mass fraction] 98 % Anna Hill MD Work Phone: [facility] 06-08-2024 12:22-0500 Systolic blood pressure 132 mm[Hg] Anna Hill MD Work Phone: [facility] 06-08-2024 10:47-0500 Body height 157.48 cm Anna Hill MD Work Phone: [facility] 06-08-2024 10:47-0500 Body temperature 97.9 [degF] Anna Hill MD Work Phone: [facility] 06-08-2024 10:47-0500 Body weight 91.45 kg Anna Hill MD Work Phone: [facility] 06-08-2024 09:52-0500 Body height 157.48 cm [facility] 06-08-2024 09:52-0500 Body mass index (BMI) [Ratio] 33.5 kg/m2 [facility] 06-08-2024 09:52-0500 Body temperature 98.5 [degF] [facility] 06-08-2024 09:52-0500 Body weight 83.23 kg [facility] 06-08-2024 09:52-0500 Heart rate 76 /min [facility] 06-08-2024 09:52-0500 Respiratory rate 18 /min [facility] 06-08-2024 09:52-0500 SaO2% (BldA) [Mass fraction] 96 % [facility] 01-28-2024 18:43-0400 Body height 157.5 cm Heide Michael [employer] Work Phone: [facility] 01-28-2024 18:43-0400 Body mass index (BMI) [Ratio] 31.64 kg/m2 Heidenaresh Michael [employer] Work Phone: [facility] 01-28-2024 18:43-0400 Body temperature 97 [degF] Heide Michael [employer] Work Phone: [facility] 01-28-2024 18:43-0400 Body weight 78.47 kg Heidenaresh Michael [employer] Work Phone: [facility] 01-28-2024 18:43-0400 Diastolic blood pressure 80 mm[Hg] Heide Michael [employer] Work Phone: [facility] 01-28-2024 18:43-0400 Heart rate 79 /min Heide Michael [employer] Work Phone: [facility] 01-28-2024 18:43-0400 SaO2% (BldA) [Mass fraction] 99 % Heide Michael [employer] Work Phone: [facility] 01-28-2024 18:43-0400 Systolic blood pressure 110 mm[Hg] Heide Michael [employer] Work Phone: [facility] Healthcare Encounters Encounter Date Encounter Type Care Provider Facility Start: 06-20-2024 End: 06-20-2024 Emergency department patient visit Anna Hill MD Work Phone: [facility] Work Phone: Start: 06-08-2024 End: 06-08-2024 Emergency department patient visit Anna Hill MD Work Phone: [facility] Work Phone: Start: 06-08-2024 End: 06-08-2024 ambulatory [facility] Work Phone: Start: 06-08-2024 End: 06-08-2024 Patient encounter procedure On License Of [facility] Work Phone: Start: 01-28-2024 End: 01-28-2024 ambulatory HEIDE MICHAEL Not Available Start: 01-28-2024 End: 01-28-2024 Office outpatient visit 15 minutes Heide Michael [employer] Work Phone: [facility] Comment on above: Physical examination of employee (Primary Dx) Start: 07-20-[address] ANNA HILL . Facili ty:[facility]1 Start: 06-16-[address] ANNA HILL . Facili ty:[facility] Start: 06-16-2022 Encounter for genera l adult medical examination without abnormal findings DR ANNA HILL . [facility] Start: 06-10-2022 End: 06-11-2022 ambulatory [...] Date Care Activity Detail Author Patient Education [facility] Work Phone: Patient referral [facility] Work Phone: Payers Date Payer Category Payer Self-pay 2023 Unknown BCBS BCBS xxxxxx [id number] 2023-Present [phone] [address] [place] [address] [id number] 1975 Unknown [id number] 1975 Unknown [id number] 1975 Unknown [id number] 1975 Unknown [id number] 1975 Unknown [id number] 1959 Self-pay [id number] 1959 Unknown [id number] Unknown [id number] Unknown [id number] Social History Date Type Detail Facility Tobacco smoking status CTIS Tobacco smoking consumption unknown [facility] Start: 1975 Sex assigned at Not on file [facility] Healthcare Gender identity Not on file [facility] Health are Start: 06-08-2024 End: 06-20-2024 Tobacco smoking status NHIS Ex-smoker (finding) [facility] Start: 06-08-2024 End: 06-20-2024 Sex Female (finding) [facility] Start: 1975 Sex Assigned At Female [facility] Start: 06-08-2024 Tobacco smoking status NHIS Never smoked tobacco (finding) [facility] NEGATED: Highlighted row [facility] Evaluation note 06-08-2024 Note Date & Type Note Facility 06-08-2024 Evaluation note Diagnosis Onset Date Resolution Shoulder pain acute May 92024 9:18am [facility] Work Phone: History of Present illness Narrative 01-28-2024 Martinez Sharma MA - 01/28/2024 6:30 PM EDTRebrittani Michael NP - 01/28/2024 6:30 PM EDT Note Date & Type Note Facility 01-28-2024 History of Presen t illness Narrative Pt presents today for a biometric screening Physical Exam for Tnjessika. Pt verified by photo ID. Subjective Patient ID: Karyn Carter is a 48 y.o. female. HPI The following portions of the chart were reviewed this encounter and updated as appropriate: @RULESMARTLINK([id number],TOBYESPROV)@@RULE SMARTLINK([id number],ALGYESPROV)@@RULESM ARTLINK([id number],MEDYESPROV)@@RULESMARTLI NK([id number],PROBYESPROV)@@RULESMARTLIN K([id number],MHYESPROV)@@RULESMARTLINK([id number] ,SHYESPROV)@@RULESMARTLINK([id number], FHYESPROV)@@RULESMARTLINK([id number],SOHYES PROV)@ Review of Systems Objective Physical ExamExamination [...] exam. Procedures Assessment/Plan documented in this encounter [facility] Healthcare Instructions 01-28-2024 Patient Instructions Note Date & Type Note Facility 01-28-2024 Instructions Heide Michael NP - 01/28/2024 6:30 PM EDT Paperwork completed, no concerns noted Healthy 48 year old, no regular meds except adderall for ADHD documented in this encounter [facility] Healthcare Evaluation note Note Date & Type Note Facility Evaluation note Diagnosis Physical examination of employee- Primary documented in this encounter [facility] Healthcare Evaluation note Note Date & Type Note Facility Evaluation note No assessment information [facility] Work Phone: Summary Purpose Family History No [...] DATE CREATED AUTHOR AUTHOR'S ORGANIZ ATION 01/29/2024 [facility] EPIC DATE CREATED AUTHOR AUTHOR'S ORGANIZ ATION 07/03/2024 [facility] Care Teams (unrecognized sec tion [...] BE BASED ON THE PRIMARY CLINICAL RECORDS. [facility] [employer] provides no warranty or guarantee of the accuracy or completeness of information in this document.
== END 2024-08-15 09:30 | disposition home or self-care (01) ==
LOC: MRI 09:30
PROVIDERS: PCP Family Medicine; Visit Provider Family Medicine
DX: G43.909 Migraine, unspecified, not intractable, without status migrainosus (principal); J01.00 Acute maxillary sinusitis, unspecified
CPT/HCPCS: 70551